=== PATIENT | female | born 1965 | race Caucasian/White ===

== ENCOUNTER 2021-04-01 17:40 | Inpatient (IN) | payer OTHER, SELFPAY ==
[2021-04-01 17:48] VITALS: BP 161/86; PULSE 77; RESP 14; TEMP 37.3; O2SAT 96; BMI 41.1
--- NOTE | 2021-04-01 18:16 | W.ED.WOUNDLC ---
Documented by User: IAN Berry 04/01/21 22:50 HPI - Wound/Laceration General: Chief Complaint: Wound/Laceration Stated Complaint: pain in right leg Time Seen by Provider: 04/01/21 18:05 History of Present Illness: HPI narrative: Patient is a 55-year-old female comes to the ED with a wound on right leg. On March 11, 2021 patient had injury on right lower leg due to getting leg pinched between cattle and gait causing a laceration. Patient was seen at a [facility] and laceration was treated and sutures were placed. Patient was put on Augmentin and completed course of antibiotic. Sutures were removed and the laceration wound appeared to be infected and she was then put on Bactrim. Patient completed the full course of Bactrim and wound has not improved and she has some necrotic tissue along with purulent foul odor drainage from wound. She contacted her PCP and they told her to come here to the ED to be evaluated due to failure of outpatient treatment. Patient says wound causes minimal pain. She says she tries to keep it clean and bandaged daily. She received her tetanus booster back on March 11 after she got the laceration. Associated symptoms: Denies chills, fever(s), nausea or vomiting Review of Systems Const: Denies: fever(s), chills or fatigue Eyes: Denies: change in vision or eye discomfort ENMT: Denies: throat pain, odynophagia, nasal discharge or nasal congestion Card: Denies: chest pain, palpitations, edema, swelling of feet/ankles, dyspnea on exertion or orthopnea Resp: Denies: dyspnea, productive cough or non-productive cough GI: Denies: abdominal pain, nausea, vomiting, diarrhea, constipation or hematochezia : Denies: flank pain, dysuria or hematuria Musc: Denies: neck pain, back pain or extremity swelling Skin/Breast: Reports: non-healing lesions (Right lower leg laceration wound that is getting worse and infected.); Denies: rash or new lesions Neuro: Denies: headache(s), numbness in extremities or weakness in extremities [facility] ED PFSH: Medical History (Updated 04/02/21 @ 14:33 by Zoe Batista MD) Asthma BMI 40.0-44.9, adult COVID-19 vaccine administered Surfingbird, summer Diabetes mellitus, type II Hypertension Hypothyroidism Sleep apnea treated with nocturnal BiPAP reports components of central and obstructive sleep apnea Surgical History (Updated 04/02/21 @ 03:32 by Floresita Love MD) History of appendectomy History of x 2 History of cholecystectomy History of hysterectomy History of spinal fusion Hx of fusion of cervical spine Family History (Updated 04/02/21 @ 03:34 by Floresita Love MD) Other Diabetes Social History (Updated 04/02/21 @ 03:35 by Floresita Love MD) Smoking and tobacco status: never smoked Alcohol intake: never Substance/Drug Use: never Physical Exam Const: COMMON NORMALS: no acute distress, patient oriented x3, healthy appearing and alert GENERAL APPEARANCE: cooperative and comfortable HENMT: COMMON NORMALS: normocephalic HEAD & SCALP: normocephalic MOUTH: Normal oral and palatal mucosa present THROAT: posterior oropharynx normal and uvula midline Neck/C-Spine: COMMON NORMALS: supple GENERAL: Yes normal visual inspection Resp: COMMON NORMALS: normal respiratory effort, No retractions, No use of accessory muscles and clear to auscultation bilaterally AUSCULTATION: clear to auscultation bilaterally Cardio: COMMON NORMALS: regular rate, regular rhythm, S1 normal heart sound present, S2 normal heart sound present, No gallops present (Cardio), No clicks present (Cardio), No murmurs present (Cardio) and Peripheral pulses 2+ throughout RATE: regular rate RHYTHM: regular rhythm HEART SOUNDS: S1 normal heart sound present and S2 normal heart sound present PERIPHERAL PULSES: Peripheral pulses 2+ throughout GI: COMMON NORMALS: Normal to inspection, nondistended, normoactive bowel sounds present, Soft to palpation, non-tender and no masses PALPATION: Yes Soft to palpation : COMMON NORMALS: Yes no CVA tenderness BLADDER/KIDNEY EXAM: Yes no CVA tenderness Back/Pelvis: COMMON NORMALS: no CVA tenderness Extremity: NARRATIVE EXTREMITY EXAM: Right lower leg?patient has a wound that appears infected with a lot of eschar tissue noted. There is some malodorous purulent drainage seen. There is mild erythema right around the edge of the wound but no erythema or warmth of the lower leg. No visible streaking seen. Wound has mild tenderness to palpation. GENERAL: Yes normal exam except as noted Neuro: COMMON NORMALS: patient oriented x3 and moves all extremities SENSORIUM/ORIENTATION: Yes alert Skin: GENERAL SKIN EXAM: dry skin Course Vital Signs: Vital signs: Vital Signs Temperature 98.4 F 04/03/21 15:50 Pulse Rate 61 04/03/21 15:50 Respiratory Rate 18 04/03/21 15:50 Blood Pressure 153/81 04/03/21 15:50 Pulse Oximetry 96 04/03/21 15:50 MDM - Wound/Laceration MDM Narrative: Medical decision making narrative: Patient is a 55-year-old female comes to the ED with a wound on right lower leg. Past medical history of hypertension, hyperlipidemia, type 2 diabetes and hypothyroidism. Patient had laceration on right lower leg that was sutured up on March 11. It got infected and patient was put on a course of Augmentin and there was no real improvement and then put on Bactrim and completed full course of antibiotic with no improvement as well. She was sent here to the ED by PCP due to failed outpatient treatment. Patient appears nontoxic and in no acute distress or pain. Patient's wound on right lower leg wound appears infected with a lot of eschar tissue noted. There is some malodorous purulent drainage seen. There is mild erythema right around the edge. White blood cell count 12.5, CRP 11.6. The rest of CBC and CMP was unremarkable. CT of right lower leg showed superficial soft tissue infection with no abscess, myositis or osteomyelitis seen. Patient was given IV Vanco and IV Rocephin while here in the ED. I talked with Dr. Mullen about patient case and he went in and saw the patient as well agreed that pt needs to be admitted due to failing outpatient treatment and possibly needs to have surgery performed some debridement on wound. I contacted and told her about pt and she agreed to have pt admitted and Gen Surgery will see pt tomorrow for wound debridement. Patient understood and agreed with plan. Lab Data: Attestation: I reviewed the patient's lab results. Labs: Lab Results 04/01/21 04/01/21 04/01/21 Range/Units 19:25 19:25 19:25 WBC 12.5 H (4.0-10.0) 10^3/ uL RBC 4.71 (4.1-5.3) 10^6/u L Hgb 11.8 (11.5-15.3) g/dL Hct 39.7 (37.0-47.0) % MCV 84.3 (81-99) fl MCH 25.1 L (28.0-34.0) pg MCHC 29.7 L (30.0-36.0) g/dL RDW 16.4 H (12.1-15.1) % Plt Count 360 (130-400) 10^3/c mm MPV 9.8 (7.4-10.4) fL Neut % (Auto) 61.9 % Lymph % (Auto) 31.1 % [place] % (Auto) 4.9 % Eos % (Auto) 1.6 % Baso % (Auto) 0.3 % Neut # (Auto) 7.70 (1.8-7.7) 10^3/u L Lymph # (Auto) 3.9 (0.8-4.8) 10^3/u L [place] # (Auto) 0.6 (0.2-0.9) 10^3/u L Eos # (Auto) 0.2 (0.0-0.8) 10^3/u L Baso # (Auto) 0.0 (0.0-0.1) 10^3/u L Nucleated RBC % (a uto) 0 % Nucleated RBCs # 0.0 /100WBC Sodium 137 (136-145) mmol/L Potassium 3.9 (3.5-5.1) mmol/L Chloride 100 (98-107) mmol/L Carbon Dioxide 25 (22-29) mmol/L Anion Gap 15.9 (5-19) BUN 9 (6-20) mg/dL Creatinine 0.6 (0.5-0.9) mg/dL GFR Calculation 103.8 (90-130) mL/min Glucose 87 (65-115) mg/dL Estimat Average Gl ucose 183 Hemoglobin A1c 8.0 H (4.0-6.0) % Calculated Osmolal ity 282 L (285-295) mOsm/k g Calcium 9.1 (8.5-10.5) mg/dL Total Bilirubin 0.2 (0.15-1.2) mg/dL AST 17 (0-32) U/L ALT 11 (0-33) U/L Alkaline Phosphata se 179 H (35-105) IU/L C-Reactive Protein 11.6 H (0.0-4.9) mg/L Total Protein 8.0 (6.6-8.7) g/dL Albumin 4.0 (3.5-5.2) g/dL Globulin 4.0 (1.3-4.6) g/dL Imaging Data^: Other CT: Attestation: I personally reviewed and interpreted this imaging study as follows: Radiologist's impression: [facility] [address] [address] [address] Scan Report Signed Patient: Korina Lincoln Unit #: [id number] : 1965 Age/Sex: 55 / F ADM Date: 04/01/21 Loc: ER Room/Bed: Attending Dr: Ordering Provider/Ordering MD: Ned Storey Date of Service: 04/01/21 Procedure(s): CT lower leg RT w con [id number] Accession Number(s): [id number] Report Number: [id number] PROCEDURE INFORMATION: Exam: CT Right Lower Extremity Without Contrast; Lower Leg Exam date and time: 04/01/2021 6:33 PM Age: 55 years old Clinical indication: Swelling, leg or foot; Additional info: Infected wound with necrotic tissue-lateral lower leg TECHNIQUE: Imaging protocol: CT of the Right lower extremity without contrast was performed. Exam focused on the lower leg. Radiation optimization: All CT scans at this facility use at least one of these dose optimization techniques: automated exposure control; mA and/or kV adjustment per patient size (includes targeted exams where dose is matched to clinical indication); or iterative reconstruction. COMPARISON: No relevant prior studies available. RADIATION DOSE METRICS: Total DLP (mGy-cm): 1084.76 FINDINGS: Bones/joints: Trace knee joint fluid. No fractures. No lytic bone lesions. No periosteal bone reaction changes. Soft tissues: Subcutaneous soft tissue edema changes. Skin thickening and thickening of the dermis on the lateral side of the lower leg. There is a focal defect in the skin in the superficial subcutaneous fat with small gas bubbles along the superficial dermis. No peripherally enhancing soft tissue fluid collection. Muscles are unremarkable in appearance. There is a small volume, very thin elongated circumscribed fluid collection in the subcutaneous fat of the anterior proximal meade area which is superficial to the infrapatellar ligament. CT/CT lower leg RT w con [id number] IMPRESSION: 1. Superficial soft tissue infection changes are noted on the lateral side of the lower leg. 2. No focal drainable soft tissue abscess. 3. No features of myositis identified. 4. Negative for osteomyelitis. Radiation Dose CTDIVOL = (mGy): DLP = 1084.76 (mGy-cm) Dictated By: Ramírez Meade Signed By: Ramírez Meade Signed Date/Time: 04/01/211953 DD/ 52 EKG Data^: EKG 1: Attestation: I personally reviewed and interpreted this EKG as follows: EKG interpretation date: 04/01/21 Interpretation: Normal sinus rhythm, 64 bpm, no ST segment elevation or depression seen. Discharge Plan Discharge Patient Disposition: Admitted As Inpatient Admit Provider: Floresita Love Condition: Stable Coding Level of Care Code ED Settlement Worker for Chg Fwd Exam Comprehensive Documented by User: Oral Mullen MD 04/03/21 16:13 HPI - Wound/Laceration General: Chief Complaint: Wound/Laceration Stated Complaint: pain in right leg Time Seen by Provider: 04/01/21 18:05 PFSH ED PFSH: Medical History (Updated 04/02/21 @ 14:33 by Zoe Batista MD) Asthma BMI 40.0-44.9, adult COVID-19 vaccine administered Surfingbird, summer Diabetes mellitus, type II Hypertension Hypothyroidism Sleep apnea treated with nocturnal BiPAP reports components of central and obstructive sleep apnea Surgical History (Updated 04/02/21 @ 03:32 by Floresita Love MD) History of appendectomy History of x 2 History of cholecystectomy History of hysterectomy History of spinal fusion Hx of fusion of cervical spine Family History (Updated 04/02/21 @ 03:34 by Folresita Love MD) Other Diabetes Social History (Updated 04/02/21 @ 03:35 by Floresita Love MD) Smoking and tobacco status: never smoked Alcohol intake: never Substance/Drug Use: never Course Vital Signs: Vital signs: Vital Signs Temperature 98.4 F 04/03/21 15:50 Pulse Rate 61 04/03/21 15:50 Respiratory Rate 18 04/03/21 15:50 Blood Pressure 153/81 04/03/21 15:50 Pulse Oximetry 96 04/03/21 15:50 MDM - Wound/Laceration MDM Narrative: Medical decision making narrative: I discussed the case with IAN Berry and reviewed the above documentation. I assessed the patient at bedside. In short 55-year-old lady with diabetes with a nonhealing wound. Upon clinical assessment at bedside of wound there is areas of eschar that will significantly limit healing as well as some amount of purulence without evidence of systemic infection. Patient will likely need debridement of her wound and further inpatient management to prevent systemic infection. Oral Mullen MD Emergency Medicine Lab Data: Labs: Lab Results 04/01/21 04/01/21 04/01/21 Range/Units 19:25 19:25 19:25 WBC 12.5 H (4.0-10.0) 10^3/ uL RBC 4.71 (4.1-5.3) 10^6/u L Hgb 11.8 (11.5-15.3) g/dL Hct 39.7 (37.0-47.0) % MCV 84.3 (81-99) fl MCH 25.1 L (28.0-34.0) pg MCHC 29.7 L (30.0-36.0) g/dL RDW 16.4 H (12.1-15.1) % Plt Count 360 (130-400) 10^3/c mm MPV 9.8 (7.4-10.4) fL Neut % (Auto) 61.9 % Lymph % (Auto) 31.1 % [place] % (Auto) 4.9 % Eos % (Auto) 1.6 % Baso % (Auto) 0.3 % Neut # (Auto) 7.70 (1.8-7.7) 10^3/u L Lymph # (Auto) 3.9 (0.8-4.8) 10^3/u L [place] # (Auto) 0.6 (0.2-0.9) 10^3/u L Eos # (Auto) 0.2 (0.0-0.8) 10^3/u L Baso # (Auto) 0.0 (0.0-0.1) 10^3/u L Nucleated RBC % (a uto) 0 % Nucleated RBCs # 0.0 /100WBC Sodium 137 (136-145) mmol/L Potassium 3.9 (3.5-5.1) mmol/L Chloride 100 (98-107) mmol/L Carbon Dioxide 25 (22-29) mmol/L Anion Gap 15.9 (5-19) BUN 9 (6-20) mg/dL Creatinine 0.6 (0.5-0.9) mg/dL GFR Calculation 103.8 (90-130) mL/min Glucose 87 (65-115) mg/dL Estimat Average Gl ucose 183 Hemoglobin A1c 8.0 H (4.0-6.0) % Calculated Osmolal ity 282 L (285-295) mOsm/k g Calcium 9.1 (8.5-10.5) mg/dL Total Bilirubin 0.2 (0.15-1.2) mg/dL AST 17 (0-32) U/L ALT 11 (0-33) U/L Alkaline Phosphata se 179 H (35-105) IU/L C-Reactive Protein 11.6 H (0.0-4.9) mg/L Total Protein 8.0 (6.6-8.7) g/dL Albumin 4.0 (3.5-5.2) g/dL Globulin 4.0 (1.3-4.6) g/dL Discharge Plan Discharge Patient Disposition: Admitted As Inpatient Admit Provider: Floresita Love Condition: Stable Coding Level of Care Code ED Settlement Worker for Chg Fwd Exam Comprehensive
--- NOTE | 2021-04-01 18:33 | CTR_ITS ---
PROCEDURE INFORMATION: Exam: CT Right Lower Extremity Without Contrast; Lower Leg Exam date and time: 04/01/2021 6:33 PM Age: 55 years old Clinical indication: Swelling, leg or foot; Additional info: Infected wound with necrotic tissue-lateral lower leg TECHNIQUE: Imaging protocol: CT of the Right lower extremity without contrast was performed. Exam focused on the lower leg. Radiation optimization: All CT scans at this facility use at least one of these dose optimization techniques: automated exposure control; mA and/or kV adjustment per patient size (includes targeted exams where dose is matched to clinical indication); or iterative reconstruction. COMPARISON: No relevant prior studies available. RADIATION DOSE METRICS: Total DLP (mGy-cm): 1084.76 FINDINGS: Bones/joints: Trace knee joint fluid. No fractures. No lytic bone lesions. No periosteal bone reaction changes. Soft tissues: Subcutaneous soft tissue edema changes. Skin thickening and thickening of the dermis on the lateral side of the lower leg. There is a focal defect in the skin in the superficial subcutaneous fat with small gas bubbles along the superficial dermis. No peripherally enhancing soft tissue fluid collection. Muscles are unremarkable in appearance. There is a small volume, very thin elongated circumscribed fluid collection in the subcutaneous fat of the anterior proximal meade area which is superficial to the infrapatellar ligament. CT/CT lower leg RT w con [id number] IMPRESSION: 1. Superficial soft tissue infection changes are noted on the lateral side of the lower leg. 2. No focal drainable soft tissue abscess. 3. No features of myositis identified. 4. Negative for osteomyelitis. Radiation Dose CTDIVOL = (mGy): DLP = 1084.76 (mGy-cm)
[2021-04-01 18:36] VITALS: BP 212/132; PULSE 71; O2SAT 96
[2021-04-01 19:25] VITALS: BP 148/92; PULSE 78; RESP 16; TEMP 37; O2SAT 98
[2021-04-01] MEDS: iohexol 300 mg/mL 100 mL Btl IV (19:31)
[2021-04-01 19:40] LABS: Basophils % 0.3 %; Eosinophils # 0.2 10^3/uL (0.0-0.8); Eosinophils % 1.6 %; Hematocrit 39.7 % (37.0-47.0); Hemoglobin 11.8 g/dL (11.5-15.3); Lymphocytes # 3.9 10^3/uL (0.8-4.8); Lymphocytes % 31.1 %; Mean Corpuscular HGB Conc 29.7 g/dL (30.0-36.0); Mean Corpuscular Hemoglobin 25.1 pg (28.0-34.0); Mean Corpuscular Volume 84.3 fl (81-99); Mean Platelet Volume 9.8 fL (7.4-10.4); Monocytes # 0.6 10^3/uL (0.2-0.9); Monocytes % 4.9 %; Neutrophils % 61.9 %; Nucleated Red Blood Cells % 0 %; Platelet Count 360 10^3/cmm (130-400); Red Blood Count 4.71 10^6/uL (4.1-5.3); Red Cell Distribution Width 16.4 % (12.1-15.1); White Blood Count 12.5 10^3/uL (4.0-10.0)
[2021-04-01] MEDS: vancomycin 1,500 MG/300 ML PIGGYBACK 200 MG IV (19:41)
[2021-04-01 20:09] LABS: Alanine Aminotransferase 11 U/L (0-33); Alkaline Phosphatase 179 IU/L (35-105); Anion Gap 15.9 (5-19); Aspartate Amino Transferase 17 U/L (0-32); Blood Urea Nitrogen 9 mg/dL (6-20); C Reactive Protein 11.6 mg/L (0.0-4.9); Calcium 9.1 mg/dL (8.5-10.5); Carbon Dioxide 25 mmol/L (22-29); Chloride 100 mmol/L (98-107); Creatinine Clr Calc Pharmacy 127.7166; Glomerular Filtration Rate 103.8 mL/min (90-130); Glucose 87 mg/dL (65-115); Osmolality Calculated 282 mOsm/kg (285-295); Potassium 3.9 mmol/L (3.5-5.1); Sodium 137 mmol/L (136-145); Total Bilirubin 0.2 mg/dL (0.15-1.2)
[2021-04-01 20:38] VITALS: BP 146/67; PULSE 61; RESP 16; TEMP 36.9; O2SAT 97
--- NOTE | 2021-04-01 21:27 | PC.NURSE ---
Dressing change to right lower extrem. cleansed with saline and covered with island dressing. Patient tolerated without complaint. Foul odor noted as well.
--- NOTE | 2021-04-01 22:13 | ECG_ITS ---
[facility] Test Date: 2021-04-01 Pat Name: Korina Lincoln Department: Room: 270 Gender: Female Supervisor Sample Preparation: : 1965 Requested By: Floresita Love Order Number: [id number] Alondra MD: Fely Damico M.D. Measurements Intervals [place] Rate: 64 P: 76 NM: 185 QRS: 51 QRSD: 93 T: 0 QT: 424 QTc: 440 Interpretive Statements SINUS RHYTHM No previous ECG available for comparison Electronically Signed On 04-02-2021 16:43:12 CDT by Fely Damico M.D. [email or web address]
--- NOTE | 2021-04-01 22:13 | PM.HP ---
Providers/Chief Complaint Admitting Physician: Floresita Love MD Primary Care Provider: Link Siddiqi MD Chief Complaint: pain in right leg History of Present Illness Korina Lincoln is a 55 year old female who presented to the emergency room with chief complaint of increasing pain and nonhealing wound to the right lower extremity. 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 She sustained a significant wound to the right lower extremity. It was treated at [facility] that day with saline irrigation and suture closing. She completed a course of Augmentin. At follow-up sutures were removed and she was put on a course of Bactrim she has also since completed. The wound has opened up, progressively worsened and recently developed significant odor. She denies any fevers. She did receive a tetanus shot on March 11. The leg is painful primarily just at the site of the wounds. It has not necessarily increased in redness. She has had some skin desquamation. She has been changing her dressings regularly. She contacted her PCPs office today and they recommended her come to the emergency room for further evaluation given progression of the wound. In the ER she received some Rocephin and vancomycin. CT of was done of the leg with results as noted below. She is being admitted for further evaluation and treatment after failing outpatient attempts at management. She is a known diabetic. Denies any history of vascular insufficiency or nonhealing wounds previously. Review of Systems Const: Reports: malaise; Denies: fever(s) or chills ENMT: Denies: throat pain or nasal congestion Card: Denies: chest pain or leg pain with exertion (Prior to wound) Resp: Reports: other (Uses BiPAP nightly, settings unknown); Denies: dyspnea, productive cough or non-productive cough GI: Denies: abdominal pain, nausea, vomiting, diarrhea or constipation : Denies: difficulty voiding or hematuria Musc: Reports: neck pain (Chronic), back pain (Chronic) and extremity pain; Denies: joint swelling or joint redness Skin/Breast: Reports: pruritus and non-healing lesions (Right lower extremity present since 03/11) Neuro: Reports: numbness in extremities (Chronic to some degree); Denies: headache(s), weakness in extremities or difficulty walking Psych: Denies: anxiety or depression Leonides/Lymph: Denies: easy bruising or easy bleeding Medications/Allergies Home Medications Medication Instructions Recorded Confirmed Last Taken Type amitriptyline 50 mg PO DAILY 04/01/21 04/02/21 04/01/21 History atenolol 50 mg PO DAILY 04/01/21 04/01/21 04/01/21 History atorvastatin 10 mg PO DAILY 04/01/21 04/01/21 04/01/21 History famotidine 20 mg PO DAILY 04/01/21 04/01/21 04/01/21 History fluticasone propionate [Flovent 250 mcg INHALATION BID 04/01/21 04/01/21 04/01/21 History Diskus] furosemide 20 mg PO DAILY 04/01/21 04/01/21 Unknown History glipizide 5 mg PO DAILY 04/01/21 04/01/21 04/01/21 History insulin glargine [Lantus Solostar 60 unit SUBCUT DAILY 04/01/21 04/01/21 04/01/21 History U-100 Insulin] levothyroxine [Synthroid] 25 mcg PO DAILY 04/01/21 04/01/21 04/01/21 History losartan 25 mg PO DAILY 04/01/21 04/01/21 04/01/21 History omeprazole 20 mg PO BID 04/01/21 04/01/21 04/01/21 History ondansetron 4 mg PO Q4H PRN 04/01/21 04/01/21 Unknown History tizanidine 4 mg PO Q4H PRN 04/01/21 04/01/21 03/31/21 History tramadol 50 mg PO QID PRN MDD 8 tabs in 24 04/01/21 04/01/21 04/01/21 History hours venlafaxine 75 mg PO BID 04/01/21 04/01/21 04/01/21 History gabapentin 600 mg PO TID 04/02/21 04/02/21 04/01/21 08:00 History Allergies Allergy/AdvReac Type Severity Reaction Status Date / Time codeine Allergy ALGY-Difficulty Verified 04/02/21 00:00 Breathing ibuprofen Allergy ADR-Gastrointestinal Verified 04/01/21 17:58 Upset metronidazole [From Flagyl] Allergy ADR-Dizzine Verified 04/01/21 17:58 ss PFSH Acute PFSH: Medical History (Updated 04/02/21 @ 04:15 by Floresita Love MD) Asthma BMI 40.0-44.9, adult COVID-19 vaccine administered ticckle, summer Diabetes mellitus, type II Hypertension Hypothyroidism Sleep apnea treated with nocturnal BiPAP reports components of central and obstructive sleep apnea Surgical History (Updated 04/02/21 @ 03:32 by Floresita Loev MD) History of appendectomy History of x 2 History of cholecystectomy History of hysterectomy History of spinal fusion Hx of fusion of cervical spine Family History (Updated 04/02/21 @ 03:34 by Floresita Love MD) Other Diabetes Social History (Updated 04/02/21 @ 03:35 by Floresita Love MD) Smoking and tobacco status: never smoked Alcohol intake: never Substance/Drug Use: never Supplemental PFSH Information: No history of anesthesia or surgical complications to note. No history of bleeding disorder, coronary artery disease, kidney disease, stroke Vitals/I&O/Wt Last Vital Signs Temp 98.5 F 04/01/21 20:38 Pulse 61 04/01/21 20:38 Resp 16 04/01/21 20:38 BP 146/67 04/01/21 20:38 Pulse Ox 97 04/01/21 20:38 Weight last 48 hrs Weight 108.862 kg Physical Exam Narrative: EXAM NARRATIVE: Constitutional: Awake and alert, looks like she does not feel well HEENT: Normocephalic, atraumatic, pupils are equal reactive, moist mucous membranes Neck: Large, short Respiratory: Clear to auscultation bilaterally, no wheezes or rhonchi noted Cardiovascular: Regular rate and rhythm, distant heart sounds, no murmurs, 1+ dorsalis pedis pulses bilaterally Abdomen: Soft, nontender, obese but nondistended, old surgical scars noted, positive bowel sounds : Deferred Extremities: Right lower extremity slightly larger in diameter than left lower extremity, no pitting edema, no calf tenderness Skin: Right lower extremity wounds as shown in picture with larger wound lateral to smaller wound, malodorous, with stitch still in place. Smaller wound is approximately 2-1/2 cm x 1 cm centrally while larger wound is approximately 7 cm x 3-1/2 cm at greatest diameter proximally and 1-1/2 cm distally. No red streaks noted but there is some adenopathy. Neuro: Face symmetric, speech clear, handgrip equal, moves all extremities Psych: Normal affect, cooperative Data : 04/01/21 19:25 04/01/21 19:25 Micro: Microbiology 04/01/21 19:25 Blood Culture - Preliminary Blood SPECIMEN COLLECTED Other data: Laboratory Results WBC 12.5 10^3/uL (4.0-10.0) H 04/01/21 19:25 RBC 4.71 10^6/uL (4.1-5.3) 04/01/21 19: Hgb 11.8 g/dL (11.5-15.3) 04/01/21: Hct 39.7 % (37.0-47.0) 04/01/21 19: MCV 84.3 fl (81-99) 04/01/21 19: MCH 25.1 pg (28.0-34.0) L 04/01/21 19: MCHC 29.7 g/dL (30.0-36.0) L 04/01/21 19: RDW 16.4 % (12.1-15.1) H 04/01/21: Plt Count 360 10^3/cmm (130-400) 04/01/21 19:25 MPV 9.8 fL (7.4-10.4) 04/01/21 19:25 Neut % (Auto) 61.9 % 04/01/21: Lymph % (Auto) 31.1 % 04/01/21:25 Gillespie % (Auto) 4.9 % 04/01/21 19:25 Eos % (Auto) 1.6 % 04/01/21: Baso % (Auto) 0.3 % 04/01/21: Neut # (Auto) 7.70 10^3/uL (1.8-7.7) 04/01/21 19: Lymph # (Auto) 3.9 10^3/uL (0.8-4.8) 04/01/21 19:25 Gillespie # (Auto) 0.6 10^3/uL (0.2-0.9) 08/16/21 19:25 Eos # (Auto) 0.2 10^3/uL (0.0-0.8) 04/01/21 19:25 Baso # (Auto) 0.0 10^3/uL (0.0-0.1) 04/01/21 19:25 Nucleated RBC % (auto) 0 % 04/01/21 19:25 Nucleated RBCs # 0.0 /100WBC 04/01/21 19:25 Sodium 137 mmol/L (136-145) 04/01/21 19:25 Potassium 3.9 mmol/L (3.5-5.1) 04/01/21 19:25 Chloride 100 mmol/L (98-107) 04/01/21 19:25 Carbon Dioxide 25 mmol/L (22-29) 04/01/21 19:25 Anion Gap 15.9 (5-19) 04/01/21 19:25 BUN 9 mg/dL (6-20) 04/01/21 19:25 Creatinine 0.6 mg/dL (0.5-0.9) 04/01/21 19:25 GFR Calculation 103.8 mL/min (90-130) 04/01/21 19:25 Glucose 87 mg/dL (65-115) 04/01/21 19:25 Calculated Osmolality 282 mOsm/kg (285-295) L 04/01/21 19:25 Calcium 9.1 mg/dL (8.5-10.5) 04/01/21 19:25 Total Bilirubin 0.2 mg/dL (0.15-1.2) 04/01/21 19:25 AST 17 U/L (0-32) 04/01/21 19:25 ALT 11 U/L (0-33) 04/01/21 19:25 Alkaline Phosphatase 179 IU/L (35-105) H 04/01/21 19:25 C-Reactive Protein 11.6 mg/L (0.0-4.9) H 04/01/21 19:25 Total Protein 8.0 g/dL (6.6-8.7) 04/01/21 19:25 Albumin 4.0 g/dL (3.5-5.2) 04/01/21 19:25 Globulin 4.0 g/dL (1.3-4.6) 04/01/21 19:[address] 04/01/21 18:33 IMPRESSION: 1. Superficial soft tissue infection changes are noted on the lateral side of the lower leg. 2. No focal drainable soft tissue abscess. 3. No features of myositis identified. 4. Negative for osteomyelitis. Radiation Dose CTDIVOL = (mGy): DLP = 1084.76 (mGy-cm) A&P Assessment and plan (1) Open wound of right lower leg: Secondary to injury sustained between a cow and a fence Status post a course of Augmentin followed by Bactrim prior to admission Vancomycin and Zosyn initiated 04/01/2021 CRP 11.6 Blood cultures collected Wound cultures to be collected at the time of debridement Venous and arterial Dopplers of the right lower extremity ordered Surgical consultation with Dr. Leigh for I&D, discussed with him and plan is for 04/02/2021 Anticipate need for wound care follow-up which I discussed with patient personally Status: Acute Qualifiers: Encounter type: subsequent encounter Qualified Code(s): S81.801D - Unspecified open wound, right lower leg, subsequent encounter (2) Diabetes mellitus, type II: Chronically on Lantus and glipizide Lower dose long-acting insulin plus sliding scale Hold home glipizide while here Check hemoglobin A1c Status: Chronic Qualifiers: Diabetes mellitus watermelon inspector insulin use: with fdc use Diabetes mellitus complication status: with skin complications Diabetes mellitus complication detail: with other skin complication Qualified Code(s): E11.628 - Type 2 diabetes mellitus with other skin complications; Z79.4 - terminal computer operator (current) use of insulin (3) Hypertension: Chronically on Lasix, losartan, atenolol Continue home atenolol Hold home losartan until after surgery Lasix currently held Status: Chronic Qualifiers: Hypertension type: essential hypertension Qualified Code(s): I10 - Essential (primary) hypertension (4) Hypothyroidism: Chronically on levothyroxine Continue home dosing of levothyroxine Status: Chronic Qualifiers: Hypothyroidism type: acquired Qualified Code(s): E03.9 - Hypothyroidism, unspecified (5) Asthma: Chronically on Flovent Continue inhaled steroid Status: Chronic Qualifiers: Asthma severity: unspecified severity Asthma persistence: unspecified Asthma complication type: unspecified Qualified Code(s): J45.909 - Unspecified asthma, uncomplicated (6) Sleep apnea treated with nocturnal BiPAP: On BiPAP at night, unsure of settings, reports that she has both central and obstructive sleep apnea BiPAP titrated to tolerance/comfort with sleep while here Status: Chronic (7) BMI 40.0-44.9, adult: Status: Chronic Additional A&P Information Chronically on simvastatin secondary to history of diabetes, continuing Chronically on PPI and H2 yoli, continuing PPI Chronically on gabapentin and tramadol for pain, will continue both and add morphine as needed for severe pain or pain while n.p.o. Chronically on amitriptyline and venlafaxine, continuing both Consultants: Giurgius, general surgery Pending/ordered tests/procedures to follow: US venous and arterial duplex RLE, planned I&D 04/02 DVT prophylaxis: currently SCD to LLE only, no pharmacological prophylaxis due to planned surgery for am Plans, findings and concerns discussed with patient and she was given an opportunity to ask questions. Anticipated Disposition: home with outpatient wound care folllowup Code Status: Full code Attestations Medical Necessity Statement*: Anticipated stay greater than two midnights in this patient with a wound requiring surgical debridement and IV antibiotics after failing appropriate attempts at outpatient management. At significant risk of progressively worsening wound particularly given known diabetes. Coding Level of Care Code Acute Dialysis Tech for [facility] Fwd Diagnoses Open wound of right lower leg S81.801D Encounter type: subsequent encounter Diabetes mellitus, type II E11.628; Z79.4 Diabetes mellitus fdc insulin use: with watermelon inspector use Diabetes mellitus complication status: with skin complications Diabetes mellitus complication detail: with other skin complication Hypertension I10 Hypertension type: essential hypertension Hypothyroidism E03.9 Hypothyroidism type: acquired Asthma J45.909 Asthma severity: unspecified severity Asthma persistence: unspecified Asthma complication type: unspecified Sleep apnea treated with nocturnal BiPAP G47.30 BMI 40.0-44.9, adult Z68.41
[2021-04-01] MEDS: cefTRIAXone 1,000 MG in sodium chloride 0.9% (plus) 50 ML 100 MG IV (22:17)
[2021-04-01 22:31] VITALS: BP 129/67; PULSE 63; RESP 16; TEMP 36.6; O2SAT 95
[2021-04-01 23:12] VITALS: BP 176/95; PULSE 67; RESP 18; TEMP 37.2; O2SAT 98
--- NOTE | 2021-04-01 23:49 | PC.PHAR ---
Vancomycin is dosed at 1500mg IVPB every 12 hours to produce a predicted trough level of 12.47 (population based pharmacokinetic analysis). A trough level has been ordered from the lab to be obtained before the fourth dose to confirm and adjust if needed. The Zosyn is dosed at 3.375gm IVPB every 8 hours on the basis of the creatinine clearance of 108.86.
[2021-04-01] MEDS: piperacillin-tazobactam 3.375 GM in sodium chloride 0.9% (plus) 50 ML IV (23:52)
[2021-04-01 23:54] VITALS: BMI 42.9
[2021-04-02] VITALS (10 sets, daily range): BP systolic 143–176; BP diastolic 79–95; PULSE 57–97; RESP 15–18; TEMP 36.8–37.2; O2SAT 95–99
[2021-04-02] MEDS: sodium chlor 0.45% +KCl 20 mEq 20 MEQ/1,000 ML BAG 75 MEQ IV (03:21)
[2021-04-02 03:50] LABS: Estmated Average Glucose 183
[2021-04-02 05:48] LABS: Glucose Point of Care 214 mg/dL (70-110)
--- NOTE | 2021-04-02 06:00 | P.CONIM_ITS ---
Providers/Reason For Consult Consulting Physician/Specialty*: Liban Leigh MD Reason for Consult*: Right lower extremity wound Requesting Physician: Dr. Love Attending Physician: Floresita Love MD Primary Care Provider: Link Siddiqi MD History of Present Illness History of Present Illness Chief Complaint: My leg hurts History of present illness: Korina Lincoln is a 55 year old female well-known with history of diabetes mellitus type 2, presented to the emergency department with pain associated with the wound of the right lower extremity. She did encounter a trauma back in March 11 where her leg got stuck between gauze with an metal fencing. Patient was treated at outside facility [facility] where she did have suturing of the wound and was placed on antibiotics. Apparently the wound dehisced and got significantly worse with associated malodor. After the patient reached out to her primary care provider she was directed to the emergency department for further care. Patient is updated on her tetanus shot. Further work-up in the ER showed leukocytosis of 12,000+ an hemoglobin A1c of [address] scan of the right lower extremity that showed 1. Superficial soft tissue infection changes are noted on the lateral side of the lower leg. 2. No focal drainable soft tissue abscess. 3. No features of myositis identified. 4. Negative for osteomyelitis. General surgery was consulted for further evaluation and potential intervention Review of Systems General: Reports: 10 or more systems reviewed and unremarkable except in HPI and below Meds/Allergies Home Medications and Allergies Home Medications Medication Instructions Recorded Confirmed Last Taken Type amitriptyline 50 mg PO DAILY 04/01/21 04/02/21 04/01/21 History atenolol 50 mg PO DAILY 04/01/21 04/01/21 04/01/21 History atorvastatin 10 mg PO DAILY 04/01/21 04/01/21 04/01/21 History famotidine 20 mg PO DAILY 04/01/21 04/01/21 04/01/21 History fluticasone propionate [Flovent 250 mcg INHALATION BID 04/01/21 04/01/21 04/01/21 History Diskus] furosemide 20 mg PO DAILY 04/01/21 04/01/21 Unknown History glipizide 5 mg PO DAILY 04/01/21 04/01/21 04/01/21 History insulin glargine [Lantus Solostar 60 unit SUBCUT DAILY 04/01/21 04/01/21 04/01/21 History U-100 Insulin] levothyroxine [Synthroid] 25 mcg PO DAILY 04/01/21 04/01/21 04/01/21 History losartan 25 mg PO DAILY 04/01/21 04/01/21 04/01/21 History omeprazole 20 mg PO BID 04/01/21 04/01/21 04/01/21 History ondansetron 4 mg PO Q4H PRN 04/01/21 04/01/21 Unknown History tizanidine 4 mg PO Q4H PRN 04/01/21 04/01/21 03/31/21 History tramadol 50 mg PO QID PRN MDD 8 tabs in 24 04/01/21 04/01/21 04/01/21 History hours venlafaxine 75 mg PO BID 04/01/21 04/01/21 04/01/21 History gabapentin 600 mg PO TID 04/02/21 04/02/21 04/01/21 08:00 History Allergies Allergy/AdvReac Type Severity Reaction Status Date / Time codeine Allergy ALGY-Difficulty Verified 04/02/21 00:00 Breathing ibuprofen Allergy ADR-Gastrointestinal Verified 04/01/21 17:58 Upset metronidazole [From Flagyl] Allergy ADR-Dizzine Verified 04/01/21 17:58 ss Current Medications Current Medications Generic Name Dose Route Start Last Admin Trade Name Freq PRN Reason Stop Dose Admin Piperacillin Sod/Tazobactam 50 mls @ 12.5 mls/hr 04/01/21 23:32 04/02/21 03:57 Sod 3.375 gm/ Sodium Chloride IV Infused Q8H PRIMO Infusion Protocol As Directed Potassium Chloride/Sodium Chloride 20 meq in 1,000 mls @ 75 mls/hr 04/02/21 01:00 04/02/21 03:21 Sodium Chlor 0.45% +Kcl 20 Meq IV 75 mls/hr .[id number] PRIMO Administration PFSH Acute PFSH: Medical History (Updated 04/02/21 @ 04:15 by Floresita Love MD) Asthma BMI 40.0-44.9, adult COVID-19 vaccine administered [employer], summer Diabetes mellitus, type II Hypertension Hypothyroidism Sleep apnea treated with nocturnal BiPAP reports components of central and obstructive sleep apnea Surgical History (Updated 04/02/21 @ 03:32 by Floresita Love MD) History of appendectomy History of x 2 History of cholecystectomy History of hysterectomy History of spinal fusion Hx of fusion of cervical spine Family History (Updated 04/02/21 @ 03:34 by Floresita Love MD) Other Diabetes Social History (Updated 04/02/21 @ 03:35 by Floresita Love MD) Smoking and tobacco status: never smoked Alcohol intake: never Substance/Drug Use: never Vitals/I&O/Wt Last Vital Signs Temp 98.3 F 04/02/21 03:43 Pulse 77 04/02/21 03:55 Resp 18 04/02/21 03:43 BP 145/79 04/02/21 03:43 Pulse Ox 97 04/02/21 03:55 04/01/21 04/01/21 04/02/21 14:59 22:59 06:59 Intake Total 400 / 400 Output Total 1000 / 1000 Balance -600 / -600 Weight last 48 hrs Weight 250 lb Weight 240 lb Physical Exam Narrative: EXAM NARRATIVE: Patient is conscious alert oriented X3 BMI 43 Head and neck examination PERRLA no masses no cervical lymphadenopathy no jaundice Cardiac examination audible S1-S2 no murmurs no gallops no arrhythmias Chest is clear bilateral,abscence of Rhonchi or wheezes,no surgical emphysema Abdomen nontender nondistended soft no organomegaly guarding or rigidity/no signs of peritonitis Extremities no cyanosis no clubbing no edema Lower third of the right leg posterior aspect shows necrotic leathery eschar about 7 x 4 cm with 0.2 cm depth, with residual necrotic tissues. Tenderness appreciated Intact dorsalis pedis artery well palpable and capillary refill less than 2 seconds. No neurovascular deficits. Data Micro: Micro: Microbiology 04/01/21 19:25 Blood Culture - Pr eliminary Blood SPECIMEN COLLEC AMRITA A&P Assessment and plan (1) Open wound of right lower leg: After thorough history physical examination and reviewing the chart and images of the CT scan with my personal interpretation. I did consumer credit counselor the patient for debridement of right lower extremity wound. Indications, risks, benefits and alternatives all discussed with the patient and she did agree to proceed accordingly. Patient understands about the potential long-term wound care and potential future surgical interventions. Informed consent per chart Status: Acute Qualifiers: Encounter type: subsequent encounter Qualified Code(s): S81.801D - Unspecified open wound, right lower leg, subsequent encounter Consult Attestations Medical Necessity Statement: Patient required hospitalization for perioperative care. Time Spent in Patient Care: (>than 50% of time spent in counselling and/or direct pt care on unit) . Coding Level of Care Code Acute Director Of Public Works for [facility] Fwd Diagnoses Open wound of right lower leg S81.801D Encounter type: subsequent encounter
[2021-04-02] MEDS: piperacillin-tazobactam 3.375 GM in sodium chloride 0.9% (plus) 50 ML IV ×3 (06:51→23:40)
--- NOTE | 2021-04-02 08:28 | PC.CHAP ---
Pastoral Care Encounter/Spiritual Assessment Type of Contact [] Declined exhaust equipment operator visit [] Patient/Family/Request visit [] Outpatient visit [] Follow-up visit [] Physician referral [] Code/Alert x[] Routine visit [] Staff referral [] Actively dying [] Patient sleeping [] Family support [] [] Out of room [] Palliative care [] [] Receiving care in room [] Pre-surgical visit [] Trauma [] Long length of stay [] ICU visit [] Other: Relational/Emotional Strength x[] Patient feels connected with others/family/visitors/staff [] Distress [] Loneliness/isolation [] Abandonment Spirituality of Patient [x] Person of Sosa [] Attends Mandaeism of their Sosa [x] Believes in Prayer [] Reads Bible or Methodist materials [] There are Spiritual issues to be addressed [place]erman Interventions [x Prayer [x] Active listening [x] Non-anxious presence [x] Spiritual/emotional support [] Crisis/trauma care [] Spiritual counseling [] Bereavement support [] Provided bereavement packet [] Provided Bible/devotional materials [] Provided toy/stuffed animal, coloring book to patient or family member [] Provided Communion [] Anointing/[place] [] Salvation [x] Completed spiritual assessment [] Other: Impact on Illness or Injury [] Angry [] Fearful [] Anxious [] Often cries [] Exhaustion [] Unable to work [] Unable to attend sabianist [] Unable to walk/stand [] Unable to read [] Unable to drive [] Unable to eat/drink [] Unable to sleep [] Unable to be with family [] Patient intubated [] Other: Summary Time spent with patient 10 min
[2021-04-02] MEDS: vancomycin 1,500 MG/300 ML PIGGYBACK 150 MG IV ×2 (08:58→21:24)
[2021-04-02] MEDS: TRAMadol 50 mg Tablet PO ×2 (09:04→17:11)
[2021-04-02] MEDS: atenolol 50 mg Tablet PO (09:04)
[2021-04-02] MEDS: venlafaxine 75 mg Tablet PO (09:09)
[2021-04-02 11:07] LABS: Glucose Point of Care 223 mg/dL (70-110)
--- NOTE | 2021-04-02 14:05 | P.ANESASSM_ITS ---
Pre-Anesthetic Assessment Pre-Anesthetic Assessment: Height/Weight: Height 1.63 m Weight 113.398 kg Temp Pulse Resp BP Pulse Ox 98.7 F 57 L 18 144/92 97 04/02/21 12:00 04/02/21 12:00 04/02/21 12:00 04/02/21 12:00 04/02/21 12:00 Preop Diagnosis: Cellulitis Proposed Procedure: Operation Date: 04/02/21 16:10 Proposed Procedures p Incision And Drainage(Right) - Liban Leigh MD Familial anesthetic complications: PONV, emergence delirium/confusion Was Beta Luna taken within 24 hours: N/A Was Clonidine taken within 24 hours: N/A Last intake: > 8 hrs Social: Social History: No alcohol and No tobacco Exam: Pre-Anes Outpt Exam: alert, oriented x 3, clear to auscultation bilaterally and regular rate & rhythm Airway: Cervical ROM: WNL MP: 3 Dentition: Full Pulmonary: Pulmonary: Asthma and Sleep apnea CV/HEM: CV/HEM: HTN Metabolic: Metabolic: DM, Morbid obesity and Thyroid Anesthetic Plan: ASA status: 3 Anesthesia: MAC Risk of > 500 ml blood loss (7ml/kg in children): No Meds/Allergies Current Medications: Current Medications Generic Name Dose Route Start Last Admin Trade Name Freq PRN Reason Stop Dose Admin Atenolol 50 mg 04/02/21 09:00 04/02/21 09:04 Atenolol 50 Mg T ablet PO 50 mg DAILY PRIMO Administration Atorvastatin Calci um 10 mg 04/02/21 09:00 04/02/21 09:04 Atorvastatin 40 Mg Tablet PO Not Given DAILY PRIMO Docusate Sodium 100 mg 04/02/21 09:00 04/02/21 09:04 Docusate Sodium 100 Mg Capsule PO Not Given BID PRIMO Famotidine 20 mg 04/02/21 09:00 04/02/21 09:05 Famotidine 20 Mg Tablet PO Not Given BID PRIMO Fluticasone Propio colby 220 puff 04/02/21 09:00 04/02/21 09:51 Fluticasone 220m cg Inhaler 12gm INHALATION 220 mcg dfe BID PRIMO Administration Gabapentin 600 mg 04/02/21 09:00 04/02/21 09:05 Gabapentin 300 M g Capsule PO Not Given TID PRIMO Piperacillin Sod/T azobactam 50 mls @ 12.5 mls /hr 04/01/21 23:32 04/02/21 11:07 Sod 3.375 gm/ So dium Chloride IV Infused Q8H PRIMO Infusion Protocol As Directed Potassium Chloride /Sodium Chloride 20 meq in 1,000 m ls @ 75 mls/hr 04/02/21 01:00 04/02/21 03:21 Sodium Chlor 0.4 5% +Kcl 20 Meq IV 75 mls/hr .[id number] PRIMO Administration Vancomycin/PEG/NAD A/Lysine/Water 1,500 mg in 300 m ls @ 150 mls/hr 04/02/21 08:00 04/02/21 11:07 Vancocin IV Infused Q12H PRIMO Infusion Insulin Aspart 0 unit 04/02/21 08:00 04/02/21 12:16 Insulin Aspart 1 00 Unit/1 Ml SUBCUT Not Given TIDWM PRIMO Protocol Insulin Glargine 20 unit 04/02/21 08:00 04/02/21 08:48 Insulin Glargine 100 Units/1 Ml SUBCUT Not Given DAILY@08 PRIMO Levothyroxine Sodi um 25 mcg 04/02/21 09:00 04/02/21 09:05 Levothyroxine 25 Mcg Tablet PO Not Given DAILY PRIMO Tramadol HCl 50 - 100 mg 04/02/21 04:06 04/02/21 09:04 Tramadol 50 Mg T ablet PO 50 mg QID PRN Administration moderate to sever e pain 1st Venlafaxine HCl 75 mg 04/02/21 09:00 04/02/21 09:09 Venlafaxine 75 M g Tablet PO 75 mg BID PRIMO Administration PFSH Anesthesia PFSH: Medical History (Updated 04/02/21 @ 04:15 by Floresita Love MD) Asthma BMI 40.0-44.9, adult COVID-19 vaccine administered easy2map, summer Diabetes mellitus, type II Hypertension Hypothyroidism Sleep apnea treated with nocturnal BiPAP reports components of central and obstructive sleep apnea Surgical History (Updated 04/02/21 @ 03:32 by Floresita Love MD) History of appendectomy History of x 2 History of cholecystectomy History of hysterectomy History of spinal fusion Hx of fusion of cervical spine Family History (Updated 04/02/21 @ 03:34 by Floresita Love MD) Other Diabetes Social History (Updated 04/02/21 @ 03:35 by Floresita Love MD) Smoking and tobacco status: never smoked Alcohol intake: never Substance/Drug Use: never Supplemental [facility] Information: No history of anesthesia or surgical complications to note. No history of bleeding disorder, coronary artery disease, kidney disease, stroke Data Anesthesia CBC & Chem 7: 04/01/21 19:25 04/01/21 19:25 Other Labs: Laboratory Results - last 48 hr 04/01/21 04/01/21 04/01/21 19:25 19:25 19:25 WBC 12.5 H RBC 4.71 Hgb 11.8 Hct 39.7 MCV 84.3 MCH 25.1 L MCHC 29.7 L RDW 16.4 H Plt Count 360 MPV 9.8 Neut % (Auto) 61.9 Lymph % (Auto) 31.1 [place] % (Auto) 4.9 Eos % (Auto) 1.6 Baso % (Auto) 0.3 Neut # (Auto) 7.70 Lymph # (Auto) 3.9 [place] # (Auto) 0.6 Eos # (Auto) 0.2 Baso # (Auto) 0.0 Nucleated RBC % (auto) 0 Nucleated RBCs # 0.0 Sodium 137 Potassium 3.9 Chloride 100 Carbon Dioxide 25 Anion Gap 15.9 BUN 9 Creatinine 0.6 GFR Calculation 103.8 Glucose 87 POC Glucose Estimat Average Glucose 183 Hemoglobin A1c 8.0 H Calculated Osmolality 282 L Calcium 9.1 Total Bilirubin 0.2 AST 17 ALT 11 Alkaline Phosphatase 179 H C-Reactive Protein 11.6 H Total Protein 8.0 Albumin 4.0 Globulin 4.0 04/02/21 04/02/21 05:38 10:59 WBC RBC Hgb Hct MCV MCH MCHC RDW Plt Count MPV Neut % (Auto) Lymph % (Auto) [place] % (Auto) Eos % (Auto) Baso % (Auto) Neut # (Auto) Lymph # (Auto) [place] # (Auto) Eos # (Auto) Baso # (Auto) Nucleated RBC % (auto) Nucleated RBCs # Sodium Potassium Chloride Carbon Dioxide Anion Gap BUN Creatinine GFR Calculation Glucose POC Glucose 214 H 223 H Estimat Average Glucose Hemoglobin A1c Calculated Osmolality Calcium Total Bilirubin AST ALT Alkaline Phosphatase C-Reactive Protein Total Protein Albumin Globulin Micro: Microbiology 08/16/21 19:25 Blood Culture - Preliminary Blood SPECIMEN COLLECTED Cardiac Studies: No Data to Display
--- NOTE | 2021-04-02 14:31 | P.PN_ITS ---
Subjective Subjective: Interval history: H&P reviewed, patient is awaiting debridement in the OR by Dr. Leigh He is n.p.o. not complaining of worsening of her pain No right leg DVT noted Vitals/I&O/Wt Last Vital Signs Temp 98.7 F 04/02/21 12:00 Pulse 57 L 04/02/21 12:00 Resp 18 04/02/21 12:00 BP 144/92 04/02/21 12:00 Pulse Ox 97 04/02/21 12:00 04/01/21 04/02/21 04/02/21 22:59 06:59 14:59 Intake Total 400 / 400 350 / 350 Output Total 1000 / 1000 Balance -600 / -600 350 / 350 Weight last 48 hrs Weight 113.398 kg Weight 108.862 kg Physical Exam Narrative: EXAM NARRATIVE: Middle-age female who was lying comfortably in her bed Morbidly obese No active distress No active chest pain, S1, S2 No signs of heart failure Central obesity She saturating well on room air no acute/audible wheezing or stridor Soft abdomen, distended Right lower extremity 7 x 3 x 2 cm wound with necrotic base, purulent cellulitis No neurovascular compromise Data : 04/01/21 19:25 04/01/21 19:25 Micro: Microbiology 04/01/21 19:25 Blood Culture - Preliminary Blood SPECIMEN COLLECTED A&P Assessment and plan (1) Cellulitis: Status: Acute (2) Asthma: Status: Chronic Qualifiers: Asthma severity: unspecified severity Asthma persistence: unspecified Asthma complication type: unspecified Qualified Code(s): J45.909 - Unspecified asthma, uncomplicated (3) Open wound of right lower leg: Status: Acute Qualifiers: Encounter type: subsequent encounter Qualified Code(s): S81.801D - Unsp ecified open wound, right lower leg, subsequent encounter (4) Diabetes mellitus, type II: Status: Chronic Qualifiers: Diabetes mellitus senior care insulin use: with senior care use Diabetes mellitus complication status: with skin complications Diabetes mellitus complication detail: with other skin complication Qualified Code(s): E11.628 - Type 2 diabetes mellitus with other skin complications; Z79.4 - long-term (current) use of insulin (5) Hypothyroidism: Status: Chronic Qualifiers: Hypothyroidism type: acquired Qualified Code(s): E03.9 - Hypothyroidism, unspecified (6) Sleep apnea treated with nocturnal BiPAP: Status: Chronic (7) BMI 40.0-44.9, adult: Status: Chronic Additional A&P Information Purulent cellulitis/open wound right leg At risk of polymicrobial infection Currently afebrile She has leukocytosis does not meet sepsis criteria Cultures sent from the ER, wound culture to be sent from the OR Continue broad-spectrum antibiotics considering her history, work history(works at a farm, takes care of cattle) and diabetes N.p.o. awaiting debridement in the OR Start her diet DVT prophylaxis afterwards Opioid for analgesia along bowel regimen Type 2 diabetes hemoglobin A1c 8 I would target hemoglobin A1c between 7-8 Consistent carb diet with sliding scale after procedure Hypothyroidism: Continue levothyroxine home regimen Hypertension: Start losartan after the procedure, atenolol to be continued Blood pressure 144/92mmhg I do believe pain control with bring her pressure down Asthma without acute exacerbation BiPAP at night Consistent carb diet DVT prophylaxis after the procedure Consistent carb diet to be started after the procedure Attestations Medical Necessity Statement*: Patient will go to the OR for debridement Time Spent in Patient Care: 16 - 35 minutes Coding Level of Care Code Acute Fire Control Technician B for [facility] Fwd Diagnoses Cellulitis L03.90 Asthma J45.909 Asthma severity: unspecified severity Asthma persistence: unspecified Asthma complication type: unspecified Open wound of right lower leg S81.801D Encounter type: subsequent encounter Diabetes mellitus, type II E11.628; Z79.4 Diabetes mellitus ocean transportation intermediary insulin use: with senior care use Diabetes mellitus complication status: with skin complications Diabetes mellitus complication detail: with other skin complication Hypothyroidism E03.9 Hypothyroidism type: acquired Sleep apnea treated with nocturnal BiPAP G47.30 BMI 40.0-44.9, adult Z68.41
[2021-04-02] MEDS: gabapentin 300 mg Capsule 600 MG PO ×2 (15:20→21:27)
[2021-04-02] MEDS: docusate sodium 100 mg Capsule PO (17:10)
[2021-04-02] MEDS: sennosides-docusate Tablet 1 TAB PO (17:10)
[2021-04-02] MEDS: famotidine 20 mg Tablet PO (17:10)
[2021-04-02 17:11] LABS: Glucose Point of Care 173 mg/dL (70-110)
[2021-04-02] MEDS: tizanidine 4 mg Tablet PO (17:11)
[2021-04-02 20:51] LABS: Glucose Point of Care 190 mg/dL (70-110)
[2021-04-02] MEDS: amitriptyline 25 mg Tablet 50 MG PO (21:27)
[2021-04-02] MEDS: enoxaparin 40 mg/0.4 mL Syringe SUBCUT (21:28)
--- NOTE | 2021-04-02 23:32 | USCV_ITS ---
Korina Lincoln Age: 55 Gender: F : 1965 Exam Date: 04/02/2021 05:58 Ordering Phys: Floresita Love MD Technologist: Miriam Solis Exam Location: [facility] [place] Indication: RLE PAIN AND SWELLING WITH NON HEALING WOUND HISTORY: Lower extremity swelling. Lower extremity pain. PROCEDURES: Venous duplex imaging was performed in only the right lower extremity. The following venous structures were evaluated: common femoral vein, profunda vein, proximal portion of the greater saphenous vein, superficial femoral vein, and the popliteal vein. In addition, the posterior tibial and peroneal trunk were evaluated. Serial compression, augmentation maneuvers, and spectral Doppler flow evaluation were performed. FINDINGS: Normal 2-D Doppler and augmentation and compressibility throughout the lower extremity venous structures. Additional imaging through the proximal calf veins also reveals no thrombus. Limited evaluation of the greater saphenous vein is patent with no thrombus.. CONCLUSIONS No DVT right lower extremity. Dr. Ratna Kimbrough DO (Electronically Signed) Final Date: 02 April 2021 08:11 S
--- NOTE | 2021-04-02 23:32 | USCV_ITS ---
Korina Lincoln Age: 55 Gender: F : 1965 Exam Date: 04/02/2021 06:04 Ordering Phys: Floresita Love MD Technologist: Miriam Solis Exam Location: [facility] [place]_ Indication: RLE PAIN AND SWELLING WITH NON HEALING WOUND Risk Factors: Previous Vascular Surgery: RIGHT LEFT Waveform Velocity (cm/s) Velocity (cm/s) Waveform Triphasic 156.2 Iliac Prox Triphasic 148.1 Iliac Mid Triphasic 127.0 Iliac Distal Triphasic 173.6 TOPOGRAPHICAL ENGINEER Triphasic 135.2 SFA Prox Triphasic 129.0 SFA Mid Triphasic 113.4 SFA Dist Triphasic 94.2 POP Triphasic 88.2 BEREAVEMENT PROGRAM COORDINATOR Biphasic 60.6 DPA FINDINGS PT IN TOO MUCH PAIN TO OBTAIN JOHAN'S Normal arterial Doppler flow velocities Near normal Doppler waveforms CONCLUSIONS Patent right lower extremity arteries with no evidence of any significant stenosis The right JOHAN was not obtained because of technical problems Dr Shaun Nathan MD FACC (Electronically Signed) Final Date: 02 April 2021 18:13 S
[2021-04-03] VITALS (20 sets, daily range): BP systolic 122–169; BP diastolic 52–110; PULSE 57–78; RESP 14–18; TEMP 36.1–37.2; O2SAT 93–98
[2021-04-03 02:48] LABS: Basophils % 0.4 %; Eosinophils # 0.3 10^3/uL (0.0-0.8); Eosinophils % 2.7 %; Hemoglobin 10.5 g/dL (11.5-15.3); Lymphocytes # 3.1 10^3/uL (0.8-4.8); Lymphocytes % 31.6 %; Mean Corpuscular HGB Conc 28.4 g/dL (30.0-36.0); Mean Corpuscular Hemoglobin 24.7 pg (28.0-34.0); Mean Corpuscular Volume 87.1 fl (81-99); Mean Platelet Volume 9.7 fL (7.4-10.4); Monocytes # 0.7 10^3/uL (0.2-0.9); Monocytes % 6.9 %; Neutrophils # 5.68 10^3/uL (1.8-7.7); Neutrophils % 58.1 %; Nucleated Red Blood Cells % 0 %; Platelet Count 291 10^3/cmm (130-400); Red Blood Count 4.25 10^6/uL (4.1-5.3); Red Cell Distribution Width 16.8 % (12.1-15.1); White Blood Count 9.8 10^3/uL (4.0-10.0)
[2021-04-03 03:35] LABS: Anion Gap 14.6 (5-19); Blood Urea Nitrogen 8 mg/dL (6-20); Calcium 8.5 mg/dL (8.5-10.5); Carbon Dioxide 25 mmol/L (22-29); Chloride 103 mmol/L (98-107); Glomerular Filtration Rate 128.1 mL/min (90-130); Glucose 168 mg/dL (65-115); Osmolality Calculated 290 mOsm/kg (285-295); Potassium 3.6 mmol/L (3.5-5.1); Sodium 139 mmol/L (136-145)
[2021-04-03 06:11] LABS: Glucose Point of Care 163 mg/dL (70-110)
[2021-04-03] MEDS: piperacillin-tazobactam 3.375 GM in sodium chloride 0.9% (plus) 50 ML IV ×3 (06:35→23:38)
[2021-04-03 08:34] LABS: Vancomycin Trough 15.8 ug/mL (10-15)
[2021-04-03] MEDS: insulin glargine 100 units/1 mL 20 UNIT SUBCUT (08:43)
[2021-04-03] MEDS: famotidine 20 mg Tablet PO ×2 (08:45→18:00)
[2021-04-03] MEDS: levothyroxine 25 mcg Tablet PO (08:45)
[2021-04-03] MEDS: atorvastatin 40 mg Tablet 10 MG PO (08:45)
[2021-04-03] MEDS: gabapentin 300 mg Capsule 600 MG PO ×3 (08:47→21:09)
[2021-04-03] MEDS: losartan 50 mg Tablet 25 MG PO (08:48)
[2021-04-03] MEDS: atenolol 50 mg Tablet PO (08:48)
[2021-04-03] MEDS: vancomycin 1,500 MG/300 ML PIGGYBACK 150 MG IV ×2 (08:57→21:07)
[2021-04-03] MEDS: venlafaxine 75 mg Tablet PO ×2 (09:23→18:00)
--- NOTE | 2021-04-03 09:31 | PC.CHAP ---
Pastoral Care Encounter/Spiritual Assessment Type of Contact [] Declined machine carton marker visit [] Patient/Family/Request visit [] Outpatient visit [] Follow-up visit [] Physician referral [] Code/Alert [x] Routine visit [] Staff referral [] Actively dying [] Patient sleeping [] Family support [] [] Out of room [] Palliative care [] [x] Receiving care in room [] Pre-surgical visit [] Trauma [] Long length of stay [] ICU visit [] Other: Relational/Emotional Strength [] Patient feels connected with others/family/visitors/staff [] Distress [] Loneliness/isolation [] Abandonment Spirituality of Patient [] Person of Sosa [] Attends Anglican of their Sosa [] Believes in Prayer [] Reads Bible or Orthodoxy materials [] There are Spiritual issues to be addressed Estimate Clerk Interventions [] Prayer [] Active listening [] Non-anxious presence [] Spiritual/emotional support [] Crisis/trauma care [] Spiritual counseling [] Bereavement support [] Provided bereavement packet [] Provided Bible/devotional materials [] Provided toy/stuffed animal, coloring book to patient or family member [] Provided Communion [] Anointing/[place] [] Salvation [] Completed spiritual assessment [] Other: Impact on Illness or Injury [] Angry [] Fearful [] Anxious [] Often cries [] Exhaustion [] Unable to work [] Unable to attend sabianism [] Unable to walk/stand [] Unable to read [] Unable to drive [] Unable to eat/drink [] Unable to sleep [] Unable to be with family [] Patient intubated [] Other: Summary Time spent with patient
--- NOTE | 2021-04-03 10:48 | P.ANESUD_ITS ---
Pre-Anesthetic Update Pre-Anesthetic Assessment: Date of Surgery/Procedure: 04/03/21 Preop Charleen gnosis: Right lower extremity wound Proposed Procedure: Operation Date: 04/03/21 12:10 Proposed Procedures p Incision And Drainage(Right) - Liban Leigh MD Any changes to Pre-Anesthetic Assessment?: No Labs Last 48hrs: Laboratory Results - last 48 hr 04/01/21 04/01/21 04/01/21 19:25 19:25 19:25 WBC 12.5 H RBC 4.71 Hgb 11.8 Hct 39.7 MCV 84.3 MCH 25.1 L MCHC 29.7 L RDW 16.4 H Plt Count 360 MPV 9.8 Neut % (Auto) 61.9 Lymph % (Auto) 31.1 [place] % (Auto) 4.9 Eos % (Auto) 1.6 Baso % (Auto) 0.3 Neut # (Auto) 7.70 Lymph # (Auto) 3.9 [place] # (Auto) 0.6 Eos # (Auto) 0.2 Baso # (Auto) 0.0 Nucleated RBC % (a uto) 0 Nucleated RBCs # 0.0 Sodium 137 Potassium 3.9 Chloride 100 Carbon Dioxide 25 Anion Gap 15.9 BUN 9 Creatinine 0.6 GFR Calculation 103.8 Glucose 87 POC Glucose Estimat Average Gl ucose 183 Hemoglobin A1c 8.0 H Calculated Osmolal ity 282 L Calcium 9.1 Total Bilirubin 0.2 AST 17 ALT 11 Alkaline Phosphata se 179 H C-Reactive Protein 11.6 H Total Protein 8.0 Albumin 4.0 Globulin 4.0 Vancomycin Trough 04/02/21 04/02/21 04/02/21 05:38 10:59 17:04 WBC RBC Hgb Hct MCV MCH MCHC RDW Plt Count MPV Neut % (Auto) Lymph % (Auto) [place] % (Auto) Eos % (Auto) Baso % (Auto) Neut # (Auto) Lymph # (Auto) [place] # (Auto) Eos # (Auto) Baso # (Auto) Nucleated RBC % (a uto) Nucleated RBCs # Sodium Potassium Chloride Carbon Dioxide Anion Gap BUN Creatinine GFR Calculation Glucose POC Glucose 214 H 223 H 173 H Estimat Average Gl ucose Hemoglobin A1c Calculated Osmolal ity Calcium Total Bilirubin AST ALT Alkaline Phosphata se C-Reactive Protein Total Protein Albumin Globulin Vancomycin Trough 04/02/21 04/03/2104/03/21 20:48 02:18 02:18 WBC 9.8 RBC 4.25 Hgb 10.5 L Hct 37.0 MCV 87.1 MCH 24.7 L MCHC 28.4 L RDW 16.8 H Plt Count 291 MPV 9.7 Neut % (Auto) 58.1 Lymph % (Auto) 31.6 [place] % (Auto) 6.9 Eos % (Auto) 2.7 Baso % (Auto) 0.4 Neut # (Auto) 5.68 Lymph # (Auto) 3.1 [place] # (Auto) 0.7 Eos # (Auto) 0.3 Baso # (Auto) 0.0 Nucleated RBC % (a uto) 0 Nucleated RBCs # 0.0 Sodium 139 Potassium 3.6 Chloride 103 Carbon Dioxide 25 Anion Gap 14.6 BUN 8 Creatinine 0.5 GFR Calculation 128.1 Glucose 168 H POC Glucose 190 H Estimat Average Gl ucose Hemoglobin A1c Calculated Osmolal ity 290 Calcium 8.5 Total Bilirubin AST ALT Alkaline Phosphata se C-Reactive Protein Total Protein Albumin Globulin Vancomycin Trough 04/03/21 04/03/21 06:04 07:10 WBC RBC Hgb Hct MCV MCH MCHC RDW Plt Count MPV Neut % (Auto) Lymph % (Auto) [place] % (Auto) Eos % (Auto) Baso % (Auto) Neut # (Auto) Lymph # (Auto) [place] # (Auto) Eos # (Auto) Baso # (Auto) Nucleated RBC % (a uto) Nucleated RBCs # Sodium Potassium Chloride Carbon Dioxide Anion Gap BUN Creatinine GFR Calculation Glucose POC Glucose 163 H Estimat Average Gl ucose Hemoglobin A1c Calculated Osmolal ity Calcium Total Bilirubin AST ALT Alkaline Phosphata se C-Reactive Protein Total Protein Albumin Globulin Vancomycin Trough 15.8 H Vitals: Temperature 97.3 F L 04/03/21 10:35 Temperature Source Temporal Artery S can 04/03/21 10:35 Pulse Rate 65 04/03/21 10:35 Pulse Rhythm 04/03/21 07:59 Respiratory Rate 18 04/03/21 10:35 Respiratory Effort Non-Labored 04/03/21 07:59 Respiratory Depth Normal 04/03/21 07:59 Respiratory Patter n 04/03/21 07:59 Blood Pressure 169/110 04/03/21 10:35 Blood Pressure Dorinda n 129 04/03/21 10:35 Blood Pressure Pos ition Semi Fowlers 04/03/21 04:00 Pulse Oximetry 97 04/03/21 10:35 Oxygen Delivery Me thod 04/03/21 10:35 Fraction of Inspir ed Oxygen 21 04/02/21 03:55 Sepsis New/Unexpla ined Change in Men yaneli Status No 04/01/21 17:48 Exam: Pre-Anes Outpt Exam: alert, oriented x 3, clear to auscultation bilaterally and regular rate & rhythm Cardiac Studies: No Data to Display
[2021-04-03] MEDS: sodium chloride 0.9% 1,000 ML 30 ML IV (10:54)
[2021-04-03] MEDS: acetaminophen 1,000 MG/100 ML PIGGYBACK 400 MG IV (10:54)
--- NOTE | 2021-04-03 12:56 | P.PN_ITS ---
Subjective Subjective: Interval history: Patient overall feels little bit better, surgery was postponed from yesterday till today due to the urgent cases that had to go to surgery yesterday. Patient was seen and examined today Medications: Reviewed: Yes Vitals/I&O/Wt Last Vital Signs Temp 97.3 F L 04/03/21 10:35 Pulse 65 04/03/21 10:35 Resp 18 04/03/21 10:35 BP 169/110 04/03/21 10:35 Pulse Ox 97 04/03/21 10:35 04/02/21 04/03/21 04/03/21 22:59 06:59 14:59 Intake Total 1090 / 1440 350 / 1790 Balance 1090 / 1440 350 / 1790 Weight last 48 hrs Weight 250 lb Weight 240 lb Physical Exam Narrative: EXAM NARRATIVE: Patient is conscious alert oriented X3 BMI 43 Head and neck examination PERRLA no masses no cervical lymphadenopathy no jaundice Right lower extremity dressing on right lower extremity dressing is on and stable Data : 04/03/21 02:18 04/03/21 02:18 Micro: Microbiology 04/01/21 19:25 Blood Culture - Preliminary Blood NEGATIVE TO DATE A&P Assessment and plan (1) Open wound of right lower leg: After thorough history physical examination and reviewing the chart and images of the CT scan with my personal interpretation. I did clinical mental health counselor the patient for debridement of right lower extremity wound. Indications, risks, benefits and alternatives all discussed with the patient and she did agree to proceed accordingly. Patient understands about the potential long-term wound ca re and potential future surgical interventions. Informed consent per chart Status: Acute Qualifiers: Encounter type: subsequent encounter Qualified Code(s): S81.801D - Unspecified open wound, right lower leg, subsequent encounter Attestations Medical Necessity Statement*: Requiring inpatient hospital requiring inpatient hospitalization for perioperative care Time Spent in Patient Care: (>than 50% of time spent in counselling and/or direct pt care on unit) . Coding Level of Care Code Acute Cardiac Cath Rn for Maritzag Fwal Diagnoses Open wound of right lower leg S81.801D Encounter type: subsequent encounter
[2021-04-03] MEDS: lidocaine 2% INJ 20 mL XX (13:48)
--- NOTE | 2021-04-03 13:50 | PM.OP ---
Operative Report Date of procedure: April 03, 2021 Pre-op Diagnosis: Right lower extremity wound Post-op diagnosis: same Post-op Findings: Right lower extremity wound Procedure Done: Sharp debridement of right lower extremity wound Specimens removed/disposition: Tissues for cultures and sensitivities Surgeon: Liban Leigh Outdoor Advertising Leasing Agent: computer service technician Danny Circulating nurses Sharonda and Mirian Anesthesia: MAC (filter press operator will Smart) Estimated blood loss (mL): 5 Condition: stable Procedure: After identifying the patient holding area, the right lower extremity was marked before the procedure by myself, patient was then taken to the operative suite, was placed in left lateral position were all pressure points were padded, IV antibiotics were given per protocol,IV propofol was infused by the anesthesia provider, prep and drape of the wound region(right posterior lateral aspect of the right calf region) was done under the usual sterile technique. Time-out was done verifying the patient's name/date of /planned procedure and destination after the procedure, all were in agreement. Started by excising the unhealthy necrotic indurated tissues of the wound. Incision was created at the skin level and went all the way down to the subcutaneous tissues, wound was excised including unhealthy tissues. There was a skin bridge and underneath it communicating with another denuded area of the skin which I did manage to debride and take the skin flap down as underneath that there were necrotic and healthy subcutaneous tissues. Posterior lateral aspect of the right calf region Wound measurement ; Pre Debridement measurements; 6.5 x 4.5 x 0[address] to the subcutaneous tissues Post-debridement measurement; 7.5 x 6 x 0.5 cm Sharp debridement all the way to the healthier subcutaneous level Tissues were obtained for cultures and sensitivities Copious and thorough irrigation of the wound was done with warm saline using Pulsavac 3 L, followed by appropriate hemostasis, packing of the wound was done with 4 x 4 impregnated and lidocaine 2%, followed by piece Denisa Bianchi. Patient tolerated the procedure well, count of instruments, needles and sponges were completed at the end of the procedure. Patient was then taken to the recovery area in stable condition. I was present for the whole entire procedure
[2021-04-03 14:02] LABS: Glucose Point of Care 142 mg/dL (70-110)
--- NOTE | 2021-04-03 14:10 | P.PN_ITS ---
Subjective Subjective: Interval history: Patient was seen and examined this morning she was awaiting debridement No overnight events no fever no signs of sepsis Cultures negative to date No associated pain Vitals/I&O/Wt Last Vital Signs Temp 97.7 F 04/03/21 14:09 Pulse 59 L 04/03/21 14:09 Resp 16 04/03/21 14:09 BP 131/52 04/03/21 14:09 Pulse Ox 96 04/03/21 14:09 04/02/21 04/03/21 04/03/21 22:59 06:59 14:59 Intake Total 1090 / 1440 350 / 1790 200 / 200 Output Total Balance 1090 / 1440 350 / 1790 190 / 190 Weight last 48 hrs Weight 113.398 kg Weight 108.862 kg Physical Exam 2 Narrative: EXAM NARRATIVE: Patient was laying comfortably in her bed S1, S2 sinus rhythm Morbidly obese Abdomen soft nontender no signs of peritonitis No neurological deficits Appropriate mood and affect Right leg open wound with purulent cellulitis without worsening of hyperemia No neurovascular compromise Data : 04/03/21 02:18 04/03/21 02:18 Micro: Microbiology 04/01/21 19:25 Blood Culture - Preliminary Blood NEGATIVE TO DATE A&P Assessment and plan (1) Cellulitis: Status: Acute (2) BMI 40.0-44.9, adult: Status: Chronic (3) COVID-19 vaccine administered: Status: Chronic (4) Asthma: Status: Chronic Qualifiers: Asthma severity: unspecified severity Asthma persistence: unspecified Asthma complication type: unspecified Qualified Code(s): J45.909 - Unspecified asthma, uncomplicated (5) Sleep apnea treated with nocturnal BiPAP: Status: Chronic (6) Open wound of right lower leg: Status: Acute Qualifiers: Encounter type: subsequent encounter Qualified Code(s): S81.801D - Unspecified open wound, right lower leg, subsequent encounter (7) Hypertension: Status: Chronic Qualifiers: Hypertension type: essential hypertension Qualified Code(s): I10 - Essential (primary) hypertension (8) Hypothyroidism: Status: Chronic Qualifiers: Hypothyroidism type: acquired Qualified Code(s): E03.9 - Hypothyroidism, unspecified (9) Diabetes mellitus, type II: Status: Chronic Qualifiers: Diabetes mellitus developmental therapist insulin use: with developmental therapist use Diabetes mellitus complication status: with skin complications Diabetes mellitus complication detail: with other skin complication Qualified Code(s): E11.628 - Type 2 diabetes mellitus with other skin complications; Z79.4 - long-term (current) use of insulin Additional A&P Information Open wound/purulent cellulitis Patient is diabetic High risk of polymicrobial infection Continue broad-spectrum antibiotics for now No signs of sepsis, cultures negative to date, culture sent from the OR today after debridement Status post debridement 04/03 Bowel regimen with opiates Patient will need closer follow-up with wound care clinic once discharged Type 2 diabetes Hemoglobin A1c 8 She does take insulin at home I do believe she will benefit from GLP-1 analog which can cause weight loss that can reduce her A1c significantly as well Hypothyroidism: Continue home regimen Hypertension: She is normotensive, resume losartan History of asthma, no acute exacerbation continue BiPAP at night for sleep apnea Consistent carb diet Sliding scale DVT prophylaxis Lovenox Attestations Medical Necessity Statement*: Anticipating discharge within 48 hours after culture sensitivity results Time Spent in Patient Care: less than 15 minutes Coding Level of Care Code Acute [facility] Diagnoses Cellulitis L03.90 BMI 40.0-44.9, adult Z68.41 COVID-19 vaccine administered Z23 Asthma J45.909 Asthma severity: unspecified severity Asthma persistence: unspecified Asthma complication type: unspecified Sleep apnea treated with nocturnal BiPAP G47.30 Open wound of right lower leg S81.801D Encounter type: subsequent encounter Hypertension I10 Hypertension type: essential hypertension Hypothyroidism E03.9 Hypothyroidism type: acquired Diabetes mellitus, type II E11.628; Z79.4 Diabetes mellitus custodial insulin use: with custodial use Diabetes mellitus complication status: with skin complications Diabetes mellitus complication detail: with other skin complication
--- NOTE | 2021-04-03 14:10 | PC.NURSE ---
pt arrived in recovery at 1353 pt wound dressed with abd and kerlex no drainage noted pt sedated with mac and is awake and alert pt states wound is a little angry but not severe in pain pt vitals stable temp 97.7 RR 16 HR 59 BP 131/52 called floor to give report
[2021-04-03] MEDS: HYDROmorphone 1 mg/mL INJ 1 mL 0.4 MG IVP ×2 (15:08→23:34)
--- NOTE | 2021-04-03 15:45 | SUR.PHASEI ---
DR SANCHEZ CALLED AND INFORMED THAT THE PRE OP ORDERED HEPARIN WAS NOT GIVEN, DR SANCHEZ AWARE AND HAD REQUESTED THE HEPARIN BE HELD. FLOOR NURSE HELEN INFORMED OF THIS AND THE ORDER WAS STOPPED.
[2021-04-03 17:29] LABS: Glucose Point of Care 209 mg/dL (70-110)
[2021-04-03] MEDS: morphine 4 mg/mL SDV 1 mL 2 MG IVP (18:32)
[2021-04-03] MEDS: tizanidine 4 mg Tablet PO (18:40)
[2021-04-03] MEDS: labetalol 5 mg/mL SDV 20mL IVP (19:14)
[2021-04-03 20:46] LABS: Glucose Point of Care 192 mg/dL (70-110)
[2021-04-03] MEDS: amitriptyline 25 mg Tablet 50 MG PO (21:09)
[2021-04-03] MEDS: enoxaparin 40 mg/0.4 mL Syringe SUBCUT (21:37)
[2021-04-04 03:55] VITALS: BP 108/65; PULSE 57; RESP 18; TEMP 36.6; O2SAT 96
[2021-04-04 06:15] LABS: Basophils % 0.5 %; Eosinophils # 0.2 10^3/uL (0.0-0.8); Eosinophils % 2.2 %; Hematocrit 36.8 % (37.0-47.0); Hemoglobin 10.7 g/dL (11.5-15.3); Lymphocytes # 2.1 10^3/uL (0.8-4.8); Mean Corpuscular HGB Conc 29.1 g/dL (30.0-36.0); Mean Corpuscular Hemoglobin 24.9 pg (28.0-34.0); Mean Corpuscular Volume 85.8 fl (81-99); Mean Platelet Volume 9.8 fL (7.4-10.4); Monocytes # 0.5 10^3/uL (0.2-0.9); Monocytes % 6.2 %; Neutrophils % 64.9 %; Nucleated Red Blood Cells % 0 %; Platelet Count 256 10^3/cmm (130-400); Red Blood Count 4.29 10^6/uL (4.1-5.3); Red Cell Distribution Width 16.6 % (12.1-15.1); White Blood Count 8.2 10^3/uL (4.0-10.0)
[2021-04-04] MEDS: piperacillin-tazobactam 3.375 GM in sodium chloride 0.9% (plus) 50 ML IV (06:32)
[2021-04-04 06:33] LABS: Anion Gap 11.9 (5-19); Blood Urea Nitrogen 7 mg/dL (6-20); Calcium 8.4 mg/dL (8.5-10.5); Carbon Dioxide 25 mmol/L (22-29); Chloride 104 mmol/L (98-107); Glomerular Filtration Rate 128.1 mL/min (90-130); Glucose 160 mg/dL (65-115); Osmolality Calculated 285 mOsm/kg (285-295); Potassium 3.9 mmol/L (3.5-5.1); Sodium 137 mmol/L (136-145)
[2021-04-04 06:39] LABS: Procalcitonin 0.04 ng/mL (0-0.5)
[2021-04-04 06:48] LABS: Glucose Point of Care 176 mg/dL (70-110)
[2021-04-04 07:20] VITALS: BP 153/86; PULSE 61; RESP 18; TEMP 36.9; O2SAT 98
[2021-04-04] MEDS: insulin glargine 100 units/1 mL 20 UNIT SUBCUT (07:56)
[2021-04-04 07:57] VITALS: BP 153/86
[2021-04-04] MEDS: gabapentin 300 mg Capsule 600 MG PO (07:57)
[2021-04-04] MEDS: famotidine 20 mg Tablet PO (07:57)
[2021-04-04] MEDS: venlafaxine 75 mg Tablet PO (07:57)
[2021-04-04] MEDS: losartan 50 mg Tablet 25 MG PO (07:57)
[2021-04-04] MEDS: atorvastatin 40 mg Tablet 10 MG PO (07:57)
[2021-04-04] MEDS: levothyroxine 25 mcg Tablet PO (07:58)
[2021-04-04 08:19] VITALS: PULSE 68; RESP 18; O2SAT 98
[2021-04-04] MEDS: TRAMadol 50 mg Tablet PO (09:56)
[2021-04-04] MEDS: vancomycin 1,500 MG/300 ML PIGGYBACK 150 MG IV (10:27)
[2021-04-04 10:51] LABS: Glucose Point of Care 194 mg/dL (70-110)
[2021-04-04 11:24] VITALS: BP 149/81; PULSE 70; RESP 17; TEMP 37; O2SAT 97
--- NOTE | 2021-04-04 12:08 | P.DS_ITS ---
Discharge Providers Date of Admission: 04/01/21 21:37 Date of Discharge: April 04, 2021 Attending Provider at Admission: Floresita Love MD Attending Provider at Discharge: Marcello Dalal MD Primary Care Provider: Link Siddiqi MD Diagnoses at Discharge Discharge Diagnosis (1) Cellulitis: Status: Acute (2) BMI 40.0-44.9, adult: Status: Chronic (3) COVID-19 vaccine administered: Status: Chronic Permanent problem details: ImaginAb, summer (4) Asthma: Status: Chronic Qualifiers: Asthma severity: unspecified severity Asthma persistence: unspecified Asthma complication type: unspecified Qualified Code(s): J45.909 - Unspecified asthma, uncomplicated (5) Sleep apnea treated with nocturnal BiPAP: Status: Chronic Permanent problem details: reports components of central and obstructive sleep apnea (6) Open wound of right lower leg: Status: Acute Permanent problem details: from a cow hoof Qualifiers: Encounter type: subsequent encounter Qualified Code(s): S81.801D - Unspecified open wound, right lower leg, subsequent encounter (7) Hypertension: Status: Chronic Qualifiers: Hypertension type: essential hypertension Qualified Code(s): I10 - Essential (primary) hypertension (8) Hypothyroidism: Status: Chronic Qualifiers: Hypothyroidism type: acquired Qualified Code(s): E03.9 - Hypothyroidism, unspecified (9) Diabetes mellitus, type II: Status: Chronic Qualifiers: Diabetes mellitus adjunct faculty for medical terminology insulin use: with adjunct faculty for medical terminology use Diabetes mellitus complication status: with skin complications Diabetes mellitus complication detail: with other skin complication Qualified Code(s): E11.628 - Type 2 diabetes mellitus with other skin complications; Z79.4 - assisted (current) use of insulin Reason for Visit Reason for Visit: pain in right leg Hospital Course Hospital Course This is a 55-year-old female with a past medical history of obesity, insulin- dependent type 2 diabetes mellitus, hypothyroidism, hypertension, who presents to [facility] due to a open wound of right lower extremity calf location with surrounding cellulitis Patient was admitted to [facility] for right lower extremity wound concerning for diabetic wound, with surrounding cellulitis, received broad- spectrum antibiotic therapy, general surgery was consulted, received a debridement down to subcutaneous tissue, tolerated surgical interventions well. She will be discharged on doxycycline Augmentin for antibiotic coverage, with close follow-up with wound care as outpatient, continue general wound care measures, she needs to monitor her blood sugars carefully, follow-up with her primary care physician. For her diabetes, I have put her on insulin sliding scale, inject blood sugars 3 times daily, before meals, based on insulin sliding scale provided. Do not inject insulin if she does not eat, monitor for hypoglycemia call primary care physician if blood sugar greater than 500, blood sugar less than 60 drink or juice or a hard candy and go to the emergency room Physical Exam Const: COMMON NORMALS: no acute distress and patient oriented x3 Resp: COMMON NORMALS: normal respiratory effort, No retractions, No use of accessory muscles and clear to auscultation bilaterally AUSCULTATION: clear to auscultation bilaterally Cardio: COMMON NORMALS: regular rate, regular rhythm, S1 normal heart sound present and S2 normal heart sound present RATE: regular rate RHYTHM: regular rhythm HEART SOUNDS: S1 normal heart sound present and S2 normal heart sound present GI: COMMON NORMALS: Normal to inspection, nondistended, normoactive bowel sounds present, Soft to palpation and non-tender PALPATION: Yes Soft to palpation Extremity: COMMON NORMALS: capillary refill normal and no pedal edema OTHER: Right lower extremity wound, wrapped, calf location Neuro: COMMON NORMALS: patient oriented x3 Psych: COMMON NORMALS: mental status grossly normal Discharge Data Data Completed and Pending: Completed Studies During Hospitalization Category Date Time Status CT lower leg RT w con [id number] Urgent Cat Scan 04/01/21 18:33 [place] [id number] Urge nt Ultrasound 04/02/21 23:32 [place] [id number] Urgent Ultrasound 04/02/21 23:32 Completed Pending at discharge Category Date Time Status Blood Culture Sta t Lab 04/01/21 19:25 Results Tissue Culture an d Gram Stain Routi ne Lab 04/03/21 13:40 Results Vancomycin Trough Timed Lab 04/04/21 19:00 Ordered Labs from last 24 hours 04/04/21 04/04/21 04/04/21 10:40 06:18 05:49 WBC RBC Hgb Hct MCV MCH MCHC RDW Plt Count MPV Neut % (Auto) Lymph % (Auto) [place] % (Auto) Eos % (Auto) Baso % (Auto) Neut # (Auto) Lymph # (Auto) [place] # (Auto) Eos # (Auto) Baso # (Auto) Nucleated RBC % (a uto) Nucleated RBCs # Sodium 137 Potassium 3.9 Chloride 104 Carbon Dioxide 25 Anion Gap 11.9 BUN 7 Creatinine 0.5 GFR Calculation 128.1 Glucose 160 H POC Glucose 194 H 176 H Calculated Osmolal ity 285 Calcium 8.4 L Procalcitonin 0.04 04/04/21 04/03/21 04/03/21 05:49 20:11 17:20 WBC 8.2 RBC 4.29 Hgb 10.7 L Hct 36.8 L MCV 85.8 MCH 24.9 L MCHC 29.1 L RDW 16.6 H Plt Count 256 MPV 9.8 Neut % (Auto) 64.9 Lymph % (Auto) 26.0 [place] % (Auto) 6.2 Eos % (Auto) 2.2 Baso % (Auto) 0.5 Neut # (Auto) 5.30 Lymph # (Auto) 2.1 [place] # (Auto) 0.5 Eos # (Auto) 0.2 Baso # (Auto) 0.0 Nucleated RBC % (a uto) 0 Nucleated RBCs # 0.0 Sodium Potassium Chloride Carbon Dioxide Anion Gap BUN Creatinine GFR Calculation Glucose POC Glucose 192 H 209 H Calculated Osmolal ity Calcium Procalcitonin 04/03/21 13:58 WBC RBC Hgb Hct MCV MCH MCHC RDW Plt Count MPV Neut % (Auto) Lymph % (Auto) [place] % (Auto) Eos % (Auto) Baso % (Auto) Neut # (Auto) Lymph # (Auto) [place] # (Auto) Eos # (Auto) Baso # (Auto) Nucleated RBC % (a uto) Nucleated RBCs # Sodium Potassium Chloride Carbon Dioxide Anion Gap BUN Creatinine GFR Calculation Glucose POC Glucose 142 H Calculated Osmolal ity Calcium Procalcitonin Vitals: Last Vital Signs Temp 98.6 F 04/04/21 11:24 Pulse 70 04/04/21 11:24 Resp 17 04/04/21 11:24 BP 149/81 04/04/21 11:24 Pulse Ox 97 04/04/21 11:24 Discharge Plan Discharge Patient Disposition: Home Condition: Stable Prescriptions: New amoxicillin-pot clavulanate [Augmentin] 875-125 mg tablet 1 tab PO BID 7 Days Qty: 14 RF: 0 doxycycline hyclate 100 mg capsule 100 mg PO BID 7 Days Qty: 14 RF: 0 insulin aspart U-100 [Novolog Flexpen U-100 Insulin] 100 unit/mL (3 mL) insulin pen See Rx Instructions .ROUTE .COMPLEX Qty: 15 RF: 0 Continued venlafaxine 75 mg tablet 75 mg PO BID RF: 0 atorvastatin 10 mg tablet 10 mg PO DAILY RF: 0 tizanidine 4 mg tablet 4 mg PO Q4H PRN (Reason: MUSCLE SPASMS) RF: 0 tramadol 50 mg tablet 50 mg PO QID MDD 8 tabs in 24 hours PRN (Reason: Pain) RF: 0 amitriptyline 50 mg tablet 50 mg PO DAILY RF: 0 Synthroid 25 mcg tablet 25 mcg PO DAILY RF: 0 famotidine 20 mg tablet 20 mg PO DAILY RF: 0 losartan 25 mg tablet 25 mg PO DAILY RF: 0 omeprazole 20 mg capsule,delayed release(DR/EC) 20 mg PO BID RF: 0 furosemide 20 mg tablet 20 mg PO DAILY RF: 0 ondansetron 4 mg tablet,disintegrating 4 mg PO Q4H PRN (Reason: nausea/vomiting) RF: 0 Flovent Diskus 250 mcg/actuation blister with device 250 mcg INHALATION BID RF: 0 atenolol 50 mg tablet 50 mg PO DAILY RF: 0 gabapentin 600 mg Tablet 600 mg PO TID RF: 0 Changed Lantus Solostar U-100 Insulin 100 unit/mL (3 mL) insulin pen 30 unit SUBCUT DAILY Qty: 0 RF: 0 Discontinued glipizide 5 mg tablet extended release 24hr 5 mg PO DAILY RF: 0 Discharge Orders: Discharge Order (Routine); Ordered 04/04/21 Ordered By: Marcello Dalal Referrals: Liban Leigh MD [Physician] - (Return to wound care center for follow-up for follow-up with Dr. Leigh, first available appointment.) WOUND [facility]ARE CL[facility], [Staff Physician] - 1-3 days Discharge Activity: Resume usual activity Patient Instructions: Opioid Safety Activity Restrictions/Additional Instructions: From general surgery standpoint of view 1-nutrition optimization with close monitoring of hyperglycemia 2-wound care in the form of packing daily with wet-to-dry using gauze followed by Marilee 3-management of medical comorbidities per primary care provider 4-return to wound care center for follow-up Assurance and education All questions have been answered and all concerns have been addressed to patient's satisfaction. -Please take antibiotics as prescribed -Follow-up with wound care -Monitor wound daily, complete clean and dry, if any worsening drainage or fevers or swelling go to the emergency room -Please monitor for signs of blood clots, stay mobile, if any signs of leg swelling, calf pain, or sudden onset shortness of breath or bloody cough go to the emergency room -I have discharged you on insulin sliding scale, please inject 3 times daily, subcu, before meals, based on blood sugars before meals -If blood sugar greater than 500 call primary care -If blood sugar less than 60, drink or juice or eat a hard candy and go to the emergency room -Record blood sugars, bring to general physician's office -Insulin sliding scale is provided as below Fingerstick Blood Glucose Insulin Units 141-180 mg/dl 2 unit/SQ 181-220 mg/dl 4 units/SQ 221-260 mg/dl 6 units/SQ 261-300 mg/dl 8 units/SQ 301-350 mg/dl 10 units/SQ 351-400 mg/dl 12 units/SQ greater than 400 mg/dl 14 units/SQ Discharge Attestations Time Spent in Discharge Care*: less than 30 min Quality Metrics Clinical Quality Measures During this hospital stay, did patient experience: None Coding Level of Care Code Acute [facility] note Diagnoses Cellulitis L03.90 BMI 40.0-44.9, adult Z68.41 COVID-19 vaccine administered Z23 Asthma J45.909 Asthma severity: unspecified severity Asthma persistence: unspecified Asthma complication type: unspecified Sleep apnea treated with nocturnal BiPAP G47.30 Open wound of right lower leg S81.801D Encounter type: subsequent encounter Hypertension I10 Hypertension type: essential hypertension Hypothyroidism E03.9 Hypothyroidism type: acquired Diabetes mellitus, type II E11.628; Z79.4 Diabetes mellitus intermediate insulin use: with intermediate use Diabetes mellitus complication status: with skin complications Diabetes mellitus complication detail: with other skin complication
[2021-04-04 16:02] VITALS: BP 149/81; PULSE 70; RESP 17; TEMP 37; O2SAT 97
--- NOTE | 2021-04-09 10:13 | PC.SOCIAL ---
hospital discharge follow up call made. patient states she has been seeing wound care. Filled prescriptions and is taking as prescribed.
== END 2021-04-04 16:03 | disposition home or self-care (01) | DRG 623 ==
LOC: ER 21:59 → MEDSURG 22:29
PROVIDERS: Internal Medicine; Surgery; Admitting Provider Hospitalist; Emergency Provider Physician Assistant; PCP Physical Medicine & Rehabilitation; Visit Provider Family Medicine
DX: E11.628 Type 2 diabetes mellitus with other skin complications (principal); L03.115 Cellulitis of right lower limb; S81.801D Unspecified open wound, right lower leg, subsequent encounter; I10 Essential (primary) hypertension; E03.9 Hypothyroidism, unspecified; G47.30 Sleep apnea, unspecified; J45.909 Unspecified asthma, uncomplicated; E11.9 Type 2 diabetes mellitus without complications; E78.5 Hyperlipidemia, unspecified; D72.829 Elevated white blood cell count, unspecified; Z90.49 Acquired absence of other specified parts of digestive tract; Z90.710 Acquired absence of both cervix and uterus; Z98.890 Other specified postprocedural states; Z88.8 Allergy status to other drugs, medicaments and biological substances; Z79.890 Hormone replacement therapy; X58.XXXD Exposure to other specified factors, subsequent encounter
CPT/HCPCS: 36415; 36416; 73701; 80048; 80053; 80202; 82962; 83036; 84145; 85025; 86140; 87040; 87070; 87077; 87176; 87186; 87205; 93005; 93926; 93971; 94640; 94660; 96365; 96367; 96372; 99285; J0696; J1170; J1650; J1815 ×2; J2270; J2543; J2704; J3010; J3370; J3490; J3535; J7030; Q9967

== ENCOUNTER 2021-04-05 09:58 | Outpatient (CLI) | payer OTHER, SELFPAY | END 2021-04-05 09:59 | disposition home or self-care (01) | LOC: WOUND 09:58 | PROVIDERS: PCP Physical Medicine & Rehabilitation; Visit Provider Surgery | DX: E11.622 Type 2 diabetes mellitus with other skin ulcer (principal); L97.812 Non-pressure chronic ulcer of other part of right lower leg with fat layer exposed | CPT/HCPCS: 11042; 11045; G0463 ==

== ENCOUNTER 2021-04-12 10:43 | Outpatient (CLI) | payer OTHER, SELFPAY | END 2021-04-12 10:44 | disposition home or self-care (01) | LOC: WOUND 10:44 | PROVIDERS: PCP Physical Medicine & Rehabilitation; Visit Provider Surgery | DX: E11.622 Type 2 diabetes mellitus with other skin ulcer (principal); L97.812 Non-pressure chronic ulcer of other part of right lower leg with fat layer exposed | CPT/HCPCS: 11042; 11045 ==

== ENCOUNTER 2021-04-19 11:16 | Outpatient (CLI) | payer OTHER, SELFPAY | END 2021-04-19 11:17 | disposition home or self-care (01) | LOC: WOUND 11:17 | PROVIDERS: PCP Physical Medicine & Rehabilitation; Visit Provider Emergency Medicine | DX: E11.622 Type 2 diabetes mellitus with other skin ulcer (principal); L97.812 Non-pressure chronic ulcer of other part of right lower leg with fat layer exposed | CPT/HCPCS: 11042; 11045 ==

== ENCOUNTER 2021-04-26 09:48 | Outpatient (CLI) | payer OTHER, SELFPAY | END 2021-04-26 09:49 | disposition home or self-care (01) | LOC: WOUND 09:49 | PROVIDERS: PCP Physical Medicine & Rehabilitation; Visit Provider Surgery | DX: E11.622 Type 2 diabetes mellitus with other skin ulcer (principal); L97.812 Non-pressure chronic ulcer of other part of right lower leg with fat layer exposed | CPT/HCPCS: 11042; 11045; 97605 ==

== ENCOUNTER 2021-04-30 15:03 | Outpatient (CLI) | payer OTHER, SELFPAY | END 2021-04-30 15:04 | disposition home or self-care (01) | LOC: WOUND 15:04 | PROVIDERS: PCP Physical Medicine & Rehabilitation; Visit Provider Nurse Practitioner Family | DX: E11.621 Type 2 diabetes mellitus with foot ulcer (principal) | CPT/HCPCS: 97605 ==

== ENCOUNTER 2021-05-03 09:05 | Outpatient (CLI) | payer OTHER, SELFPAY | END 2021-05-03 09:06 | disposition home or self-care (01) | LOC: WOUND 09:08 | PROVIDERS: PCP Physical Medicine & Rehabilitation; Visit Provider Surgery | DX: E11.622 Type 2 diabetes mellitus with other skin ulcer (principal); L97.812 Non-pressure chronic ulcer of other part of right lower leg with fat layer exposed | CPT/HCPCS: 11042; 11045; A6237 ==

== ENCOUNTER 2021-05-07 14:47 | Outpatient (CLI) | payer OTHER, SELFPAY | END 2021-05-07 14:48 | disposition home or self-care (01) | LOC: WOUND 14:47 | PROVIDERS: PCP Physical Medicine & Rehabilitation; Visit Provider Nurse Practitioner Family | DX: E11.622 Type 2 diabetes mellitus with other skin ulcer (principal); L97.812 Non-pressure chronic ulcer of other part of right lower leg with fat layer exposed | CPT/HCPCS: 97605 ==

== ENCOUNTER 2021-05-10 08:54 | Outpatient (CLI) | payer OTHER, SELFPAY | END 2021-05-10 08:55 | disposition home or self-care (01) | LOC: WOUND 08:56 | PROVIDERS: PCP Physical Medicine & Rehabilitation; Visit Provider Surgery | DX: E11.622 Type 2 diabetes mellitus with other skin ulcer (principal); L97.812 Non-pressure chronic ulcer of other part of right lower leg with fat layer exposed | CPT/HCPCS: 11042; 11045; A6250 ==

== ENCOUNTER 2021-05-14 14:33 | Outpatient (CLI) | payer OTHER, SELFPAY | END 2021-05-14 14:34 | disposition home or self-care (01) | LOC: WOUND 14:34 | PROVIDERS: PCP Physical Medicine & Rehabilitation; Visit Provider Surgery | DX: E11.622 Type 2 diabetes mellitus with other skin ulcer (principal); L97.819 Non-pressure chronic ulcer of other part of right lower leg with unspecified severity | CPT/HCPCS: 99212; A6219 ==

== ENCOUNTER 2021-05-24 09:27 | Outpatient (CLI) | payer OTHER, SELFPAY | END 2021-05-24 09:28 | disposition home or self-care (01) | LOC: WOUND 09:28 | PROVIDERS: PCP Physical Medicine & Rehabilitation; Visit Provider Surgery | DX: E11.622 Type 2 diabetes mellitus with other skin ulcer (principal); L97.812 Non-pressure chronic ulcer of other part of right lower leg with fat layer exposed | CPT/HCPCS: 11042 ==

== ENCOUNTER 2021-05-31 10:27 | Outpatient (CLI) | payer OTHER, SELFPAY | END 2021-05-31 10:28 | disposition home or self-care (01) | LOC: WOUND 10:28 | PROVIDERS: PCP Physical Medicine & Rehabilitation; Visit Provider Nurse Practitioner Family | DX: E11.622 Type 2 diabetes mellitus with other skin ulcer (principal); L97.812 Non-pressure chronic ulcer of other part of right lower leg with fat layer exposed; L97.821 Non-pressure chronic ulcer of other part of left lower leg limited to breakdown of skin | CPT/HCPCS: 11042; 11045; 87070; 87176; 87205 ==

== ENCOUNTER → 2021-06-07 08:06 | Outpatient (BNVA) | payer OTHER, SELFPAY | PROVIDERS: PCP Physical Medicine & Rehabilitation; Referring Provider Physician Assistant; Visit Provider Internal Medicine | DX: E11.628 Type 2 diabetes mellitus with other skin complications (principal); E11.40 Type 2 diabetes mellitus with diabetic neuropathy, unspecified; E03.9 Hypothyroidism, unspecified; Z68.41 Body mass index [BMI] 40.0-44.9, adult; Z79.4 Long term (current) use of insulin | CPT/HCPCS: 99204 ==

== ENCOUNTER 2021-06-07 09:23 | Outpatient (CLI) | payer OTHER, SELFPAY | END 2021-06-07 09:24 | disposition home or self-care (01) | LOC: WOUND 09:25 | PROVIDERS: PCP Physical Medicine & Rehabilitation; Visit Provider Surgery | DX: E11.622 Type 2 diabetes mellitus with other skin ulcer (principal); L97.812 Non-pressure chronic ulcer of other part of right lower leg with fat layer exposed; L97.822 Non-pressure chronic ulcer of other part of left lower leg with fat layer exposed | CPT/HCPCS: 11042; A6219 ==

== ENCOUNTER 2021-06-14 10:48 | Outpatient (CLI) | payer OTHER, SELFPAY | END 2021-06-14 10:49 | disposition home or self-care (01) | LOC: WOUND 10:48 | PROVIDERS: PCP Physical Medicine & Rehabilitation; Visit Provider Surgery | DX: E11.622 Type 2 diabetes mellitus with other skin ulcer (principal); L97.812 Non-pressure chronic ulcer of other part of right lower leg with fat layer exposed; L97.822 Non-pressure chronic ulcer of other part of left lower leg with fat layer exposed; I10 Essential (primary) hypertension | CPT/HCPCS: 11042 ==

== ENCOUNTER 2021-06-21 08:18 | Outpatient (RCR) | payer OTHER, SELFPAY | END 2021-07-16 23:59 | disposition home or self-care (01) | LOC: WOUND 08:18 | PROVIDERS: PCP Physical Medicine & Rehabilitation; Visit Provider Surgery | DX: E11.622 Type 2 diabetes mellitus with other skin ulcer (principal); L97.812 Non-pressure chronic ulcer of other part of right lower leg with fat layer exposed; L97.822 Non-pressure chronic ulcer of other part of left lower leg with fat layer exposed; I10 Essential (primary) hypertension | CPT/HCPCS: 11042; A6219 ==

== ENCOUNTER 2021-07-05 11:03 | Outpatient (CLI) | payer OTHER, SELFPAY | END 2021-07-05 11:04 | disposition home or self-care (01) | LOC: WOUND 11:04 | PROVIDERS: PCP Physical Medicine & Rehabilitation; Visit Provider Surgery | DX: E11.622 Type 2 diabetes mellitus with other skin ulcer (principal); L97.812 Non-pressure chronic ulcer of other part of right lower leg with fat layer exposed; S81.802A Unspecified open wound, left lower leg, initial encounter; W19.XXXA Unspecified fall, initial encounter; I10 Essential (primary) hypertension | CPT/HCPCS: 11042 ==

== ENCOUNTER 2021-07-19 10:31 | Outpatient (CLI) | payer OTHER, SELFPAY | END 2021-07-19 10:32 | disposition home or self-care (01) | LOC: WOUND 10:31 | PROVIDERS: PCP Physical Medicine & Rehabilitation; Visit Provider Surgery | DX: I96 Gangrene, not elsewhere classified (principal); E11.622 Type 2 diabetes mellitus with other skin ulcer; L97.812 Non-pressure chronic ulcer of other part of right lower leg with fat layer exposed; L97.822 Non-pressure chronic ulcer of other part of left lower leg with fat layer exposed; I10 Essential (primary) hypertension | CPT/HCPCS: 11042 ==

== ENCOUNTER 2021-07-26 13:08 | Outpatient (CLI) | payer OTHER, SELFPAY | END 2021-07-26 13:09 | disposition home or self-care (01) | LOC: WOUND 13:08 | PROVIDERS: PCP Physical Medicine & Rehabilitation; Visit Provider Surgery | DX: S81.822A Laceration with foreign body, left lower leg, initial encounter (principal); W45.8XXA Other foreign body or object entering through skin, initial encounter; I10 Essential (primary) hypertension; E11.9 Type 2 diabetes mellitus without complications | CPT/HCPCS: 11042 ==

== ENCOUNTER 2021-08-02 10:08 | Outpatient (CLI) | payer OTHER, SELFPAY | END 2021-08-02 10:09 | disposition home or self-care (01) | LOC: WOUND 10:08 | PROVIDERS: PCP Physical Medicine & Rehabilitation; Visit Provider Surgery | DX: I96 Gangrene, not elsewhere classified (principal); S81.822A Laceration with foreign body, left lower leg, initial encounter; X58.XXXA Exposure to other specified factors, initial encounter | CPT/HCPCS: 11042 ==

== ENCOUNTER 2021-08-23 10:34 | Outpatient (CLI) | payer OTHER, SELFPAY | END 2021-08-23 10:35 | disposition home or self-care (01) | LOC: WOUND 10:34 | PROVIDERS: PCP Physical Medicine & Rehabilitation; Visit Provider Surgery | DX: E11.622 Type 2 diabetes mellitus with other skin ulcer (principal); L97.822 Non-pressure chronic ulcer of other part of left lower leg with fat layer exposed | CPT/HCPCS: 11042; A6219 ==

== ENCOUNTER 2021-08-30 09:26 | Outpatient (CLI) | payer OTHER, SELFPAY | END 2021-08-30 09:27 | disposition home or self-care (01) | LOC: WOUND 09:27 | PROVIDERS: PCP Physical Medicine & Rehabilitation; Visit Provider Surgery | DX: Z09 Encounter for follow-up examination after completed treatment for conditions other than malignant neoplasm (principal) | CPT/HCPCS: 99212; A6212 ==

== ENCOUNTER 2022-03-17 09:06 | Emergency (ER) | payer OTHER, SELFPAY ==
[2022-03-17] VITALS (7 sets, daily range): BP systolic 119–167; BP diastolic 84–108; PULSE 80–91; RESP 18–20; TEMP 36.2; O2SAT 96–100; BMI 37.8
--- NOTE | 2022-03-17 09:47 | ED_ITS ---
HPI - Abdominal Pain General: Chief Complaint: Abdominal Pain Stated Complaint: nausea, abd pain Time Seen by Provider: 03/17/22 09:21 Source: patient Mode of arrival: ambulatory Limitations: no limitations History of Present Illness: 56-year-old female presents emergency room with complaint of abdominal pain with persistent nausea and vomiting low-grade fevers while she refers the pain in the right lower quadrant she denies dysuria urgency frequency or hematuria. No hematochezia or melena. She has previously had a cholecystectomy and an appendectomy. Her bowels can continue to be regular. She denies any cough shortness of breath. MD elicited complaint: abdominal pain Onset (ago): day(s) Pain Consistency: constant Location: RLQ Quality: stabbing Radiation: none Exacerbating factors: vomiting Relieving factors: nothing Associated Symptoms: Reports bloating, constipation, GI cramping, heartburn, nausea and poor appetite; Denies anorexia, belching, change in bowel habits, change in stool character, chills, coffee ground emesis, diarrhea, dyspepsia, dysuria, excessive flatus, fever(s), hematochezia, hematuria, hematemesis, fecal incontinence, loose stools, melena, syncope and vomiting Review of Systems Const: Denies: fever(s), chills, fatigue or malaise ENMT: Denies: throat pain, ear or mastoid pain, nasal discharge or nasal congestion Card: Denies: chest pain or syncope Resp: Denies: dyspnea, productive cough or non-productive cough GI: Reports: abdominal pain, nausea, heartburn, constipation, bloating and GI cramping; Denies: vomiting, hematemesis, coffee ground emesis, diarrhea, belching, excessive flatus, fecal incontinence, change in bowel habits, change in stool character, hematochezia or melena : Reports: flank pain; Denies: difficulty voiding, dysuria, urinary frequency, urinary urgency or hematuria Skin/Breast: Denies: rash or pruritus PFSH ED PFSH: Medical History Anemia Asthma BMI 40.0-44.9, adult COVID-19 vaccine administered Microinox, summer Diabetes mellitus, type II Hypertension Hypothyroidism Sleep apnea treated with nocturnal BiPAP reports components of central and obstructive sleep apnea Surgical History History of appendectomy History of x 2 History of cholecystectomy History of hysterectomy History of spinal fusion Hx of fusion of cervical spine Family History Father Diabetes Asthma Mother Hypoglycemia Social History Second hand smoke exposure: No Smoking risk assessment/counseling performed?: No Alcohol intake: never Desire information about alcohol rehabilitation?: No Counseling given: No Desire information about substance/drug rehabilitation?: No Counseling given: No Adopted: No Caregiver/support person: No Lives independently: Yes Household members: spouse Housing: House Marital status: Number of children: 2 Highest education level completed: Associate Degree: Academic Program service: No Current occupational status: disabled History of recent travel: No Sexually active: No Current gender identity: Female Agree to transfusion: Yes Physical Exam Const: GENERAL APPEARANCE: cooperative and comfortable O RIENTATION/CONSCIOUSNESS: Yes awake, Yes oriented to person, Yes oriented to place and Yes oriented to time HENMT: COMMON NORMALS: normocephalic, atraumatic and hearing grossly normal bilaterally HEAD & SCALP: normocephalic and atraumatic Resp: COMMON NORMALS: normal respiratory effort, No retractions, No use of accessory muscles and clear to auscultation bilaterally AUSCULTATION: clear to auscultation bilaterally Cardio: COMMON NORMALS: regular rate, regular rhythm and No murmurs present (Cardio) RATE: regular rate RHYTHM: regular rhythm GI: COMMON NORMALS: Soft to palpation and No hepatosplenomegaly present AUSCULTATION: Yes normoactive bowel sounds PALPATION: Yes Soft to palpation, No Tenderness to palpation present (GI), No Guarding due to palpation present (GI) and Yes No hepatosplenomegaly present Extremity: COMMON NORMALS: normal to inspection, capillary refill normal, no clubbing, cyanosis or edema, no calf tenderness and no pedal edema Neuro: SENSORIUM/ORIENTATION: Yes oriented to person, Yes oriented to place and Yes oriented to time Skin: COMMON NORMALS: no rashes or lesions noted GENERAL SKIN EXAM: no rashes or lesions noted Course Vital Signs: Vital signs: Vital Signs Temperature 97.1 F L 03/17/22 09:13 Pulse Rate 89 03/17/22 12:18 Respiratory Rate 20 H 03/17/22 10:12 Blood Pressure 167/93 03/17/22 12:18 Pulse Oximetry 98 03/17/22 12:18 Oxygen Delivery Me thod 03/17/22 11:00 MDM - Abdominal Pain Medical Decision Making Labs EKG and imaging all reviewed as found in the chart. Patient has a mild leukocytosis and mild hypokalemia. She is got some ketones in her urine there is nothing acute on her CT. I believe the leukocytosis Due to the nausea and vomiting. She has no respiratory symptoms and her lung exam was normal. She is feeling better after some fluids we will go and discharge her home clear liquid diet anti-inflammatories return to the emergency room if she has any worsening symptoms. Medical Records I reviewed the patient's medical records. Lab Data I reviewed the patient's lab results. : 03/17/22 10:04 03/17/22 10:40 Labs/Radiology: Radiology Impressions Abdomen/Pelvis CT 03/17/22 10:26 IMPRESSION: 1. Prior cholecystectomy. 2. No acute findings in the abdomen or pelvis. 3. Hydronephrosis in either kidney. No obstructing ureteral calculi. 4. Prior appendectomy. 5. Prior hysterectomy. 6. Sigmoid diverticulosis. No evidence of acute diverticulitis. 7. Postoperative changes changes L4-L5 pedicle screw fixation with interbody fusion. Laboratory Results WBC 16.2 10^3/uL (4.0-10.0) H 03/17/22 10:04 RBC 5.32 10^6/uL (4.1-5.3) H 03/17/22 10:04 Hgb 13.8 g/dL (11.5-15.3) 03/17/22 10:04 Hct 45.0 % (37.0-47.0) 03/17/22 10:04 MCV 84.6 fl (81-99) 03/17/22 10:04 MCH 25.9 pg (28.0-34.0) L 03/17/22 10:04 MCHC 30.7 g/dL (30.0-36.0) 03/17/22 10:04 RDW 19.3 % (12.1-15.1) H 03/17/22 10:04 Plt Count 274 10^3/cmm (130-400) 03/17/22 10:04 MPV 11.1 fL (7.4-10.4) H 03/17/22 10:04 Neut % (Auto) 84.3 % 03/17/22 10:04 Lymph % (Auto) 9.3 % 03/17/22 10:04 [place] % (Auto) 5.4 % 03/17/22 10:04 Eos % (Auto) 0.4 % 03/17/22 10:04 Baso % (Auto) 0.2 % 03/17/22 10:04 Neut # (Auto) 13.65 10^3/uL (1.8-7.7) H 03/17/22 10:04 Lymph # (Auto) 1.5 10^3/uL (0.8-4.8) 03/17/22 10:04 [place] # (Auto) 0.9 10^3/uL (0.2-0.9) 03/17/22 10:04 Eos # (Auto) 0.1 10^3/uL (0.0-0.8) 03/17/22 10:04 Baso # (Auto) 0.0 10^3/uL (0.0-0.1) 03/17/22 10:04 Nucleated RBC % (auto) 0 % 03/17/22 10:04 Nucleated RBCs # 0.0 /100WBC 03/17/22 10:04 Sodium 139 mmol/L (136-145) 03/17/22 10:40 Potassium 3.4 mmol/L (3.5-5.1) L 03/17/22 10:40 Chloride 101 mmol/L (98-107) 03/17/22 10:40 Carbon Dioxide 22 mmol/L (22-29) 03/17/22 10:40 Anion Gap 19.4 (5-19) H 03/17/22 10:40 BUN 11 mg/dL (6-20) 03/17/22 10:40 Creatinine 0.5 mg/dL (0.5-0.9) 03/17/22 10:40 GFR Calculation 127.6 mL/min (90-130) 03/17/22 10:40 Glucose 199 mg/dL (65-115) H 03/17/22 10:40 Calculated Osmolality 293 mOsm/kg (285-295) 03/17/22 10:40 Calcium 9.1 mg/dL (8.5-10.5) 03/17/22 10:40 Total Bilirubin 0.9 mg/dL (0.15-1.2) 03/17/22 10:40 AST 16 U/L (0-32) 03/17/22 10:40 ALT 11 U/L (0-33) 03/17/22 10:40 Alkaline Phosphatase 125 IU/L (35-105) H 03/17/22 10:40 Total Protein 8.0 g/dL (6.6-8.7) 03/17/22 10:40 Albumin 3.8 g/dL (3.5-5.2) 03/17/22 10:40 Globulin 4.2 g/dL (1.3-4.6) 03/17/22 10:40 Urine Color Dark yellow (Yellow) 03/17/22 09:20 Urine Appearance Clear (CLEAR) 03/17/22 09:20 Urine pH 5 (5-7) 03/17/22 09:20 Ur Specific [place] 1.025 (1.005-1.030) 03/17/22 09:20 Urine Protein 1+ (Negative) H 03/17/22 09:20 Urine Glucose (UA) Norm (Normal) 03/17/22 09:20 Urine Ketones 3+ (Negative) H 03/17/22 09:20 Urine Blood Trace (Negative) H 03/17/22 09:20 Urine Nitrate Negative (Negative) 03/17/22 09:20 Urine Bilirubin 1+ (Negative) H 03/17/22 09:20 Urine Urobilinogen Norm mg/dL (Negative) 03/17/22 09:20 Ur Leukocyte Esterase Negative (Negative) 03/17/22 09:20 Urine RBC Rare /hpf (0-2) 03/17/22 09:20 Urine WBC 5-10 /hpf (0-5) H 03/17/22 09:20 Ur Squamous Epith Cells 0-4 /hpf (0-5) H 03/17/22 09:20 Amorphous Sediment Not Reportable 03/17/22 09:20 Urine Bacteria 1+ /hpf (NONE) H 03/17/22 09:20 Urine Mucus Trace /hpf 03/17/22 09:20 Discharge Plan Discharge Patient Disposition: Home Clinical Impression: Abdominal pain Condition: Stable Prescriptions: New ondansetron HCl 4 mg tablet 4 mg PO Q6H PRN (Reason: nausea and vomiting) Qty: 20 0RF No Action Lantus Solostar U-100 Insulin 100 unit/mL (3 mL) insulin pen 30 unit SUBCUT BEDTIME venlafaxine 75 mg tablet 75 mg PO BID atorvastatin 10 mg tablet 20 mg PO QAM tizanidine 4 mg tablet 4 mg PO Q4H PRN (Reason: MUSCLE SPASMS) tramadol 50 mg tablet 50 - 100 mg PO QID MDD 8 tabs in 24 hours PRN (Reason: Pain) levothyroxine [Synthroid] 25 mcg tablet 25 mcg PO QAM famotidine 20 mg tablet 20 mg PO TID losartan 25 mg tablet 25 mg PO QAM omeprazole 20 mg capsule,delayed release(DR/EC) 20 mg PO BID furosemide 20 mg tablet 20 mg PO DAILY PRN (Reason: Edema) ondansetron 4 mg tablet,disintegrating 4 mg PO Q4H PRN (Reason: nausea/vomiting) Flovent Diskus 250 mcg/actuation blister with device 1 inh INHALATION BID atenolol 50 mg tablet 50 mg PO BEDTIME cetirizine 10 mg tablet 10 mg PO DAILY Novolog Flexpen U-100 Insulin 100 unit/mL (3 mL) insulin pen See Rx Instructions .ROUTE .COMPLEX Rx Instructions: sliding scale subcutaneously tid with meals as needed Fiber (psyllium husk) 0.4 gram Capsule 0.4 g PO DAILY Discharge Orders: Discharge ED (Routine); Ordered 03/17/22 Ordered By: Irving Argueta Referrals: Link Siddiqi MD [Referring] - Discharge Diet: Clear Liquid Discharge Activity: Increase activity as tolerated Coding Level of Care Code ED Legal Document Assistant for Chg Fwd Exam Detailed
--- NOTE | 2022-03-17 09:53 | ECG_ITS ---
[facility] Test Date: 2022-03-17 Pat Name: Korina Lincoln Department: Room: Gender: Female Survey Technician: : 1965 Requested By: Irving Hicks Order Number: [id number] Alondra MD: Ramírez Ramirez M.D. Measurements Intervals [place] Rate: 87 P: 71 [place]: 170 QRS: 32 QRSD: 93 T: 33 QT: 382 QTc: 460 Interpretive Statements SINUS RHYTHM NONSPECIFIC T-WAVE ABNORMALITY Compared to ECG 04/01/2021 22:42:50 T-wave abnormality now present Electronically Signed On 03-18-2022 7:03:15 CDT by Ramírez Ramirez M.D. [id number]
--- NOTE | 2022-03-17 10:06 | PC.PHAR ---
pt states she takes care of her own medications-pt states she hasnt taken amitriptyline since jun 2021-pt states she takes 20mg qam of atorvastatin ext med history shows last filled for 10mg daily on 12/25/21 90d/s-pt states she takes famotidine 20mg tid ext med history shows last filled 03/05/22 90d/s for 20mg daily-notes are made in the pharmacy comments
[2022-03-17] MEDS: morphine 4 mg/mL SDV 1 mL IVP (10:12)
[2022-03-17] MEDS: ondansetron 2 mg/ML SDV 2 mL 4 MG IVP (10:12)
[2022-03-17] MEDS: sodium chloride 0.9% 1,000 ML 999 ML IV ×2 (10:13→11:34)
[2022-03-17 10:24] LABS: Basophils % 0.2 %; Eosinophils # 0.1 10^3/uL (0.0-0.8); Eosinophils % 0.4 %; Hemoglobin 13.8 g/dL (11.5-15.3); Lymphocytes # 1.5 10^3/uL (0.8-4.8); Lymphocytes % 9.3 %; Mean Corpuscular HGB Conc 30.7 g/dL (30.0-36.0); Mean Corpuscular Hemoglobin 25.9 pg (28.0-34.0); Mean Corpuscular Volume 84.6 fl (81-99); Mean Platelet Volume 11.1 fL (7.4-10.4); Monocytes # 0.9 10^3/uL (0.2-0.9); Monocytes % 5.4 %; Neutrophils # 13.65 10^3/uL (1.8-7.7); Neutrophils % 84.3 %; Nucleated Red Blood Cells % 0 %; Platelet Count 274 10^3/cmm (130-400); Red Blood Count 5.32 10^6/uL (4.1-5.3); Red Cell Distribution Width 19.3 % (12.1-15.1); White Blood Count 16.2 10^3/uL (4.0-10.0)
--- NOTE | 2022-03-17 10:26 | CT_ITS ---
WS: [id number] CT ABDOMEN PELVIS TECHNIQUE: Noncontrast CT of the abdomen and pelvis with coronal and sagittal reformatted images. CLINICAL INFORMATION: Abdominal pain COMPARISON: None. DLP: 910.[address] scans at [facility] use at least one of these dose optimization techniques: automated e xposure control; mA and/or kV adjustment per patient size (includes targeted exams where dose is matc hed to clinical indication); or iterative reconstruction. FINDINGS: Cholecystectomy clips. Noncontrast liver is normal. Normal noncontrast spleen. Normal GE junction. Ad renal glands are normal. No hydronephrosis in either kidney. No obstructing renal or ureteral calculi . Pelvic phleboliths. Sigmoid diverticulosis. No evidence of acute diverticulitis. Normal caliber abdominal aorta. Tiny fat-containing umbilical hernia. Interbody fusion L4-L5. Pedicle screw fixation L4-L5. Slight anterolisthesis L4 on L5. CT/CT abdomen pelvis wo con [id number] IMPRESSION: 1. Prior cholecystectomy. 2. No acute findings in the abdomen or pelvis. 3. Hydronephrosis in either kidney. No obstructing ureteral calculi. 4. Prior appendectomy. 5. Prior hysterectomy. 6. Sigmoid diverticulosis. No evidence of acute diverticulitis. 7. Postoperative changes changes L4-L5 pedicle screw fixation with interbody f usion.
[2022-03-17 10:57] LABS: Add Urine Microscopic? YES; Bilirubin Urine 1+ (Negative); Blood Urine Trace (Negative); Glucose Urine UA Norm (Normal); Ketones Urine 3+ (Negative); Leukocyte Esterase Urine Negative (Negative); Nitrate Urine Negative (Negative); Protein Urine 1+ (Negative); Specific Gravity, Urine 1.025 (1.005-1.030); Urine Appearance Clear (CLEAR); Urine Color Dark Yellow (Yellow); Urobilinogen Urine Norm (Negative); pH Urine 5 (5-7)
[2022-03-17 10:58] LABS: Add Urine Culture? No; Bacteria Urine 1+ /hpf; Mucus Urine TRACE /hpf; RBC Urine RARE /hpf (0-2); Squamous Epithelial Cell Urine 0-4 /hpf (0-5)
[2022-03-17 11:43] LABS: Alanine Aminotransferase 11 U/L (0-33); Albumin Level 3.8 g/dL (3.5-5.2); Alkaline Phosphatase 125 IU/L (35-105); Aspartate Amino Transferase 16 U/L (0-32); Blood Urea Nitrogen 11 mg/dL (6-20); Calcium 9.1 mg/dL (8.5-10.5); Carbon Dioxide 22 mmol/L (22-29); Chloride 101 mmol/L (98-107); Globulin 4.2 g/dL (1.3-4.6); Glomerular Filtration Rate 127.6 mL/min (90-130); Glucose 199 mg/dL (65-115); Osmolality Calculated 293 mOsm/kg (285-295); Sodium 139 mmol/L (136-145); Total Bilirubin 0.9 mg/dL (0.15-1.2)
[2022-03-17 11:50] LABS: Anion Gap 19.4 (5-19); Potassium 3.4 mmol/L (3.5-5.1)
== END 2022-03-17 12:20 | disposition home or self-care (01) ==
PROVIDERS: Emergency Provider Family Medicine
DX: R10.9 Unspecified abdominal pain (principal); Z79.4 Long term (current) use of insulin; E11.9 Type 2 diabetes mellitus without complications; I10 Essential (primary) hypertension
CPT/HCPCS: 74176; 80053; 81001; 85025; 93005; 96361; 96374; 96375; 99285; J2270; J2405; J7030

== ENCOUNTER 2022-06-19 05:31 | Day surgery (SDC) | payer OTHER, SELFPAY ==
[2022-06-17 09:46] VITALS: BMI 37.8
[2022-06-19 06:14] VITALS: BP 139/67; PULSE 63; RESP 20; TEMP 36.2; O2SAT 96
[2022-06-19] MEDS: sodium chloride 0.9% 1,000 ML 30 ML IV (06:19)
[2022-06-19 06:24] LABS: Glucose Point of Care 93 mg/dL (70-110)
--- NOTE | 2022-06-19 06:31 | P.HP_ITS ---
Same Day Surgery H&P Indication for Procedure/HPI DATE OF PROCEDURE: June 19, 2022 CHIEF COMPLAINT/INDICATIONFOR SURGICAL PROCEDURE: My catracho medina PREOP DIAGNOSIS: Nausea and vomiting/iron deficiency anemia/screening colono scopy PLANNED PROCEDURE: Operation Date: 06/19/22 07:30 Proposed Procedures p 46042 EGD 34457 Colon R11.2,Z12.11(Not Applicable) - Liban Leigh MD s Colonoscopy(Not Applicable) - Liban Leigh MD 04/17/2022 This is a pleasant 56 years old female patient morbidly obese with history of diabetes mellitus type 2, well-known to me from wound care center as she did have right lower extremity wound and she did heal well from that as well as left lower extremity wound.? Patient comes today with history of nausea and vomiting on daily basis associated with heartburn and she has been on PPI therapy for more than 6 months also she reports abdominal cramps yet she denies bleeding per rectum and she never had a colonoscopy before. 06/19/2022 Patient comes today for diagnostic EGD and screening colonoscopy ROS All systems have been reviewed negative except as for the above or per problem list. Medications/Allergies* Home Medications Medication Instructions Recorded Confirmed Type famotidine 20 mg tablet 20 mg PO TID 04/01/21 06/17/22 History fluticasone propionate 250 1 inh inhalation BID 04/01/21 06/17/22 History mcg/actuation blister powder for inhalation (Flovent Diskus) furosemide 20 mg tablet 20 mg PO DAILY PRN Edema 04/01/21 06/17/22 History ondansetron 4 mg disintegrating 4 mg PO Q4H PRN nausea/vomiting 04/01/21 06/17/22 History tablet tizanidine 4 mg tablet 4 mg PO Q4H PRN MUSCLE SPASMS 04/01/21 06/17/22 History insulin glargine 100 unit/mL (3 30 unit SUBCUT BEDTIME 09/09/21 06/17/22 History mL) subcutaneous pen (Lantus Solostar U-100 Insulin) insulin aspart U-100 100 unit/mL See Rx Instructions .Route .COMPLEX 03/17/22 06/17/22 History (3 mL) subcutaneous pen (Novolog Flexpen U-100 Insulin aspart) psyllium husk 0.4 gram capsule 0.4 g PO DAILY 03/17/22 06/17/22 History (Fiber (psyllium husk)) Allergies/Adverse Reactions Allergy/AdvReac Type Severity Reaction Status Date / Time dulaglutide [From Trulicity] Allergy pancreatiti Verified 06/19/22 06:32 s empagliflozin Allergy bladder Verified 06/19/22 06:32 [From Jardiance] problems ibuprofen Allergy very ill Verified 06/19/22 06:32 throwing up metformin Allergy vomit Verified 06/19/22 06:32 constant and violently Current Medications: Generic Name Dose Route Start Last Admin Trade Name Freq PRN Reason Stop Dose Admin Sodium Chloride 1,000 mls @ 30 mls/hr 06/19/22 05:45 06/19/22 06:19 Sodium Chloride 0.9% IV 06/20/22 05:44 30 mls/hr .Q24H PRIMO Administration Pertinent History/Comorbid Conditions* Medical History (Updated 04/19/22 @ 16:37 by Liban Leigh MD) Anemia Asthma BMI 40.0-44.9, adult COVID-19 vaccine administered Davia, summer Diabetes mellitus, type II Hypertension Hypothyroidism Sleep apnea treated with nocturnal BiPAP reports components of central and obstructive sleep apnea Surgical History (Updated 04/02/21 @ 03:32 by Floresita Love MD) History of appendectomy History of x 2 History of cholecystectomy History of hysterectomy History of spinal fusion Hx of fusion of cervical spine Family History (Updated 06/07/21 @ 08:29 by Jo Stark LPN) Diabetes Father Hypoglycemia Mother Asthma Father Social History Smoking and tobacco status: never smoked Second hand smoke exposure: No Smoking risk assessment/counseling performed?: No Alcohol intake: never Desire information about alcohol rehabilitation?: No Counseling given: No Desire information about substance/drug rehabilitation?: No Counseling given: No Adopted: No Caregiver/support person: No Lives independently: Yes Household members: spouse Housing: House Marital status: Number of children: 2 Highest education level completed: Associate Degree: Academic Program service: No Current occupational status: disabled History of recent travel: No Sexually active: No Current gender identity: Female Agree to transfusion: Yes Pertinent Exam Findings alert, oriented x 3, regular rate & rhythm and procedure specific exam findings (Abdominal exam nontender nondistended soft) Recommendations Surgery/Procedure today (EGD and colonoscopy possible biopsy) Other Plans: Patient is concerned about potential underlying gastroparesis, I did explain for the patient after evaluating and performing the endoscopies gastric emptying study may be warranted. But I will know more after the procedure is done. Coding Level of Care Code Acute Technology Applications Consultant for [place]
--- NOTE | 2022-06-19 06:43 | ANES.PREANE2 ---
Pre-Anesthetic Assessment Height/Weight: Height 1.63 m Weight 99.79 kg Temp Pulse Resp BP Pulse Ox O2 Del Method 97.2 F L 63 20 H 139/67 96 06/19/22 06:14 06/19/22 06:14 06/19/22 06:14 06/19/22 06:14 06/19/22 06:14 06/19/22 06:14 Preop Diagnosis: Nausea and vomiting/iron deficiency anemia/screening colonoscopy Operation Date: 06/19/22 07:30 Proposed Procedures p 17135 EGD 78924 Colon R11.2,Z12.11(Not Applicable) - Liban Leigh MD s Colonoscopy(Not Applicable) - Liban Leigh MD Familial anesthetic complications: nausea following anesthesia Was Beta Luna taken within 24 hours: Yes Was Clonidine taken within 24 hours: N/A Last intake: Intake Last Liquid Date 06/18/22 Last Liquid Time 17:30 Last Solid Date 06/16/22 Last Solid Time 14:00 Social No alcohol and No tobacco Exam alert, oriented x 3, clear to auscultation bilaterally and regular rate & rhythm Airway Submandibular: within normal limits Cervical ROM: within normal limits Mallampati: Class II Dentition: false Pulmonary Asthma and Sleep Apnea (Bipap at night) CV/HEM Hypertension None reported Hepatic None reported GI Gastroesophageal Reflux Disease (controlled) Metabolic Diabetes Mellitus, Morbid Obesity and Thyroid Disease Musc/skel Lower Back Pain (neck fusion back fusion) and Osteoarthritis/DJD Neuropsych Headache Anesthetic Plan ASA status: 3 Anesthesia: MAC Risk of > 500 ml blood loss (7ml/kg in children): No Medications/Allergies Home Medications Medication Instructions Recorded Confirmed Last Taken Type famotidine 20 mg tablet 20 mg PO TID 04/01/21 06/17/22 06/17/22 History fluticasone propionate 250 1 inh inhalation BID 04/01/21 06/17/22 06/18/22 History mcg/actuation blister powder for inhalation (Flovent Diskus) furosemide 20 mg tablet 20 mg PO DAILY PRN Edema 04/01/21 06/17/22 06/17/22 History ondansetron 4 mg disintegrating 4 mg PO Q4H PRN nausea/vomiting 04/01/21 06/17/22 06/17/22 History tablet tizanidine 4 mg tablet 4 mg PO Q4H PRN MUSCLE SPASMS 04/01/21 06/17/22 06/17/22 History insulin glargine 100 unit/mL (3 30 unit SUBCUT BEDTIME 09/09/21 06/17/22 06/17/22 History mL) subcutaneous pen (Lantus Solostar U-100 Insulin) insulin aspart U-100 100 unit/mL See Rx Instructions .Route .COMPLEX 03/17/22 06/17/22 06/17/22 History (3 mL) subcutaneous pen (Novolog Flexpen U-100 Insulin aspart) psyllium husk 0.4 gram capsule 0.4 g PO DAILY 03/17/22 06/17/22 06/17/22 History (Fiber (psyllium husk)) atenolol 25 mg tablet 25 mg PO DAILY #90 tabs 06/11/22 06/17/22 06/18/22 Rx atorvastatin 10 mg tablet 20 mg PO QAM #90 tabs 06/11/22 06/17/22 06/17/22 Rx levothyroxine 25 mcg tablet 25 mcg PO QAM #90 tabs 06/11/22 06/17/22 06/18/22 Rx (Synthroid) omeprazole 20 mg capsule,delayed 20 mg PO BID #90 caps 06/11/22 06/17/22 06/17/22 Rx release tramadol 50 mg tablet 50 - 100 mg PO QID PRN Pain #90 06/11/22 06/17/22 06/18/22 Rx tabs venlafaxine 75 mg tablet 75 mg PO BID #90 tabs 06/11/22 06/17/22 06/18/22 Rx Allergies Allergy/AdvReac Type Severity Reaction Status Date / Time dulaglutide [From Trulicity] Allergy pancreatiti Verified 06/19/22 06:32 s empagliflozin Allergy bladder Verified 06/19/22 06:32 [From Jardiance] problems ibuprofen Allergy very ill Verified 06/19/22 06:32 throwing up metformin Allergy vomit Verified 06/19/22 06:32 constant and violently Current Medications Generic Name Dose Route Start Last Admin Trade Name Freq PRN Reason Stop Dose Admin Sodium Chloride 1,000 mls @ 30 mls/hr 06/19/22 05:45 06/19/22 06:19 Sodium Chloride 0.9% IV 06/20/22 05:44 30 mls/hr .Q24H PRIMO Administration PFSH Anesthesia Medical History Anemia Asthma BMI 40.0-44.9, adult COVID-19 vaccine administered 66. com, summer Diabetes mellitus, type II Hypertension Hypothyroidism Sleep apnea treated with nocturnal BiPAP reports components of central and obstructive sleep apnea Surgical History History of appendectomy History of x 2 History of cholecystectomy History of hysterectomy History of spinal fusion Hx of fusion of cervical spine Family History Father Diabetes Asthma Mother Hypoglycemia Social History Smoking and tobacco status: never smoked Second hand smoke exposure: No Smoking risk assessment/counseling performed?: No Alcohol intake: never Desire information about alcohol rehabilitation?: No Counseling given: No Desire information about substance/drug rehabilitation?: No Counseling given: No Adopted: No Caregiver/support person: No Lives independently: Yes Household members: spouse Housing: House Marital status: Number of children: 2 Highest education level completed: Associate Degree: Academic Program service: No Current occupational status: disabled History of recent travel: No Sexually active: No Current gender identity: Female Agree to transfusion: Yes Data Anesthesia Cardiac Studies: No Data to Display
[2022-06-19 07:50] VITALS: BP 135/63; PULSE 62; RESP 16; TEMP 36.6; O2SAT 97
--- NOTE | 2022-06-19 08:03 | ANE.PACU2 ---
Inpatient post-anesthesia follow up: Airway intact: Yes Vital signs: Temperature 97.2 F Pulse Rate 63 Respiratory Rate 20 Blood Pressure 139/67 Pulse Oximetry 96 Oxygen Delivery Me thod Room Air Oxygen Flow Rate Fraction of Inspir ed Oxygen Hydration adequate: Yes Nausea and vomiting: No Pain level: 1 Mental status: Baseline
[2022-06-19 08:04] VITALS: BP 153/93; PULSE 63; RESP 18; O2SAT 93
== END 2022-06-19 08:15 | disposition home or self-care (01) ==
PROVIDERS: PCP Internal Medicine; Visit Provider Surgery
PROC: 0DJ08ZZ Inspection of Upper Intestinal Tract, Via Natural or Artificial Opening Endoscopic (ICD-10-PCS; CPT 43235; principal; 2022-06-19 07:30)
PROC: 0DJD8ZZ Inspection of Lower Intestinal Tract, Via Natural or Artificial Opening Endoscopic (ICD-10-PCS; CPT 45378; 2022-06-19 07:30)
DX: Z12.11 Encounter for screening for malignant neoplasm of colon (principal); R11.2 Nausea with vomiting, unspecified; D50.9 Iron deficiency anemia, unspecified; K21.00 Gastro-esophageal reflux disease with esophagitis, without bleeding; K29.70 Gastritis, unspecified, without bleeding; K57.30 Diverticulosis of large intestine without perforation or abscess without bleeding; E11.9 Type 2 diabetes mellitus without complications; E66.01 Morbid (severe) obesity due to excess calories; Z68.37 Body mass index [BMI] 37.0-37.9, adult; Z86.16 Personal history of COVID-19; I10 Essential (primary) hypertension; E03.9 Hypothyroidism, unspecified; G47.30 Sleep apnea, unspecified
CPT/HCPCS: 36416; 43239; 45378; 82962; 88305; J2704; J7030

== ENCOUNTER 2023-01-26 14:42 | Outpatient (CLI) | payer OTHER, MEDICARE, SELFPAY ==
--- NOTE | 2023-01-26 14:50 | MM_ITS ---
WS: [id number] BILATERAL 3D TOMOSYNTHESIS DIGITAL DIAGNOSTIC MAMMOGRAPHY WITH CAD CLINICAL INFORMATION: PAIN IN UPPER ARM RT HISTORY: RIGHT axillary pain COMPARISON: 2019 and 2014 TECHNIQUE: Bilateral CC, MLO, and ML views. FINDINGS: Scattered fibroglandular densities bilaterally. Incidental punctate calcifications. A few lucent cent ered calcifications. No suspicious mammographic abnormalities deep to the palpable marker near the RI GHT axillary tail. Ultrasound described below. LEFT breast is unremarkable. ULTRASOUND BREAST RIGHT TECHNIQUE: Ultrasound right breast focused area of concern. CLINICAL INFORMATION: PAIN IN UPPER ARM RT FINDINGS: Ultrasound RIGHT axilla in the area of concern. There is an elongated lobulated lymph node with a dot ign appearance measuring 1.4 x 1.0 x 3.0 cm. Preserved fatty hilum. No significant cortical thickenin g. No other suspicious findings. MM/[place] [id number] IMPRESSION: BI-RADS: 2-Benign FOLLOW UP: 1 Year Follow-up Recommend return to annual screening mammography.
== END 2023-01-26 14:43 | disposition home or self-care (01) ==
PROVIDERS: PCP Internal Medicine; Visit Provider Internal Medicine
DX: Z01.419 Encounter for gynecological examination (general) (routine) without abnormal findings (principal); M79.621 Pain in right upper arm; Z12.31 Encounter for screening mammogram for malignant neoplasm of breast
CPT/HCPCS: 76642; 77062; 87624; G0279